=== PATIENT | male | born 1965 | race Caucasian/White ===

== ENCOUNTER 2020-07-06 14:16 | Outpatient (REF) | payer OTHER, MEDICAID, SELFPAY ==
[2020-07-06 16:45] LABS: Hematocrit 36.6 % (42-52); Hemoglobin 12.4 g/dl (14.0-18.0); Mean Corpuscular HGB Conc 33.9 g/dl (31.0-36.0); Mean Corpuscular Hemoglobin 30.5 pg (27.0-33.0); Mean Corpuscular Volume 89.9 fL (80-98); Mean Platelet Volume 9.2 fL (9.4-12.4); Platelet Count 251 X10*3/uL (160-400); Red Blood Count 4.07 X10*6/uL (4.60-5.80); Red Cell Distribution Width 11.9 % (11.0-16.0); White Blood Count 7.6 X10*3/uL (4.8-10.8)
[2020-07-06 17:00] LABS: Estimated Average Glucose 154 mg/dL
[2020-07-06 17:08] LABS: Creatinine Urine 98.86 mg/dL; Microalbum/Creatinine Ratio Ur 142.6 ug/mg cr
[2020-07-06 17:11] LABS: Alanine Aminotransferase 22 U/L (0-40); Albumin Level 4.3 g/dL (3.5-5.0); Alkaline Phosphatase 35 U/L (39-117); Anion Gap 16 (12-20); Aspartate Amino Transferase 16 U/L (5-37); Bilirubin Total 0.9 mg/dL (0.0-1.0); Blood Urea Nitrogen 18 mg/dL (9-16); Calcium 8.6 mg/dL (8.4-10.2); Carbon Dioxide 24 mmol/L (22-29); Chloride 101 mmol/L (96-108); Cholesterol 164 mg/dL; Estimated Glomerular Filt Rate > 60; Glucose Fasting 105 mg/dL (60-99); HDL Cholesterol 39 mg/dL; LDL Cholesterol Calculated 58 mg/dl; Potassium 3.9 mmol/l (3.3-5.1); Sodium 137 mmol/L (135-145); Total Protein 7.4 g/dL (6.5-8.0); Triglycerides 337 mg/dL
== END 2020-07-06 14:17 | disposition home or self-care (01) ==
LOC: HO.HMGCLDS 14:16
PROVIDERS: PCP Internal Medicine; Visit Provider Internal Medicine
DX: E11.9 Type 2 diabetes mellitus without complications (principal); E78.2 Mixed hyperlipidemia; I10 Essential (primary) hypertension
CPT/HCPCS: 36415; 80053; 80061; 82043; 83036; 85027

== ENCOUNTER 2020-10-14 08:10 | Outpatient (REF) | payer OTHER, MEDICAID, SELFPAY ==
[2020-10-14 09:17] LABS: MANUAL DIFF FLAG NO
[2020-10-14 09:22] LABS: Basophils Percent Auto 0.7 % (0-2); Eosinophils Absolute Auto 0.2 X10*3/uL (0.0-0.4); Eosinophils Percent Auto 3.9 % (0-4); Hematocrit 38.8 % (42-52); Hemoglobin 13.1 g/dl (14.0-18.0); Imm Gran Abs Auto 0.03 X10*3/uL (0.00-0.03); Imm Gran Pct Auto 0.5 % (0.0-0.4); Lymphocytes Absolute Auto 1.8 X10*3/uL (1.2-4.9); Lymphocytes Percent Auto 30.5 % (20-40); Mean Corpuscular HGB Conc 33.8 g/dl (31.0-36.0); Mean Corpuscular Hemoglobin 30.3 pg (27.0-33.0); Mean Corpuscular Volume 89.8 fL (80-98); Mean Platelet Volume 9.6 fL (9.4-12.4); Monocytes Absolute Auto 0.4 X10*3/uL (0.1-1.2); Monocytes Percent Auto 7.2 % (2-11); Neutrophils Absolute Auto 3.4 X10*3/uL (2.0-8.3); Neutrophils Percent Auto 57.2 % (45-73); Platelet Count 236 X10*3/uL (160-400); Red Blood Count 4.32 X10*6/uL (4.60-5.80); White Blood Count 5.9 X10*3/uL (4.8-10.8)
[2020-10-14 09:41] LABS: Cholesterol 152 mg/dL; HDL Cholesterol 34 mg/dL; Iron 92 mcg/dL (45-160); LDL Cholesterol Calculated 78 mg/dl; Percent Iron Saturation 24 % (15-50); Total Iron Binding Capacity 380 mcg/dL (228-428); Triglycerides 204 mg/dL; Unsaturated Iron Binding 288 ug/dL
[2020-10-14 09:53] LABS: Estimated Average Glucose 163 mg/dL; Hemoglobin A1c % 7.3 %
[2020-10-14 10:00] LABS: Creatinine Urine 78.38 mg/dL; Microalbum/Creatinine Ratio Ur 113.5 ug/mg cr
== END 2020-10-14 08:11 | disposition home or self-care (01) ==
LOC: HO.LAB 08:10
PROVIDERS: PCP Internal Medicine; Visit Provider Internal Medicine
DX: E11.9 Type 2 diabetes mellitus without complications (principal); E78.5 Hyperlipidemia, unspecified; I10 Essential (primary) hypertension; D64.9 Anemia, unspecified; N20.0 Calculus of kidney
CPT/HCPCS: 36415; 80061; 82043; 83036; 83540; 85025

== ENCOUNTER 2020-10-16 11:31 | Outpatient (REF) | payer OTHER, MEDICAID, SELFPAY | END 2020-10-16 11:32 | disposition home or self-care (01) | LOC: HO.HMGCLDS 11:31 | PROVIDERS: PCP Internal Medicine; Visit Provider Internal Medicine | DX: Z20.822 Contact with and (suspected) exposure to COVID-19 (principal) | CPT/HCPCS: 36415; U0003; U0005 ==

== ENCOUNTER 2021-01-11 14:08 | Outpatient (REF) | payer OTHER, MEDICAID, SELFPAY ==
[2021-01-11 16:41] LABS: Hemoglobin 12.9 g/dl (14.0-18.0); Mean Corpuscular HGB Conc 33.9 g/dl (31.0-36.0); Mean Corpuscular Hemoglobin 30.2 pg (27.0-33.0); Mean Platelet Volume 9.6 fL (9.4-12.4); Platelet Count 255 X10*3/uL (160-400); Red Blood Count 4.27 X10*6/uL (4.60-5.80); Red Cell Distribution Width 11.9 % (11.0-16.0); White Blood Count 6.2 X10*3/uL (4.8-10.8)
[2021-01-11 16:49] LABS: Estimated Average Glucose 169 mg/dL; Hemoglobin A1c % 7.5 %
[2021-01-11 16:59] LABS: Alanine Aminotransferase 25 U/L (0-40); Albumin Level 4.5 g/dL (3.5-5.0); Alkaline Phosphatase 42 U/L (39-117); Anion Gap 13 (12-20); Aspartate Amino Transferase 20 U/L (5-37); Bilirubin Total 0.7 mg/dL (0.0-1.0); Blood Urea Nitrogen 17 mg/dL (9-16); Calcium 9.6 mg/dL (8.4-10.2); Carbon Dioxide 28 mmol/L (22-29); Chloride 100 mmol/L (96-108); Cholesterol 166 mg/dL; Estimated Glomerular Filt Rate > 60; Glucose Fasting 92 mg/dL (60-99); HDL Cholesterol 37 mg/dL; LDL Cholesterol Calculated 62 mg/dl; Potassium 3.9 mmol/L (3.3-5.1); Sodium 137 mmol/L (135-145); Total Protein 7.8 g/dL (6.5-8.0); Triglycerides 335 mg/dL
[2021-01-11 17:09] LABS: Creatinine Urine 110.41 mg/dL; Microalbum/Creatinine Ratio Ur 99.6 ug/mg cr
== END 2021-01-11 14:09 | disposition home or self-care (01) ==
LOC: HO.HMGCLDS 14:08
PROVIDERS: PCP Internal Medicine; Visit Provider Internal Medicine
DX: E78.5 Hyperlipidemia, unspecified (principal); E11.9 Type 2 diabetes mellitus without complications; I10 Essential (primary) hypertension
CPT/HCPCS: 36415; 80053; 80061; 82043; 83036; 85027

== ENCOUNTER 2021-05-12 07:55 | Outpatient (REF) | payer OTHER, MEDICAID, SELFPAY ==
[2021-05-12 12:14] LABS: Creatinine Urine 88.31 mg/dL; Microalbum/Creatinine Ratio Ur 95.1 ug/mg cr
[2021-05-12 12:17] LABS: Alanine Aminotransferase 25 U/L (0-40); Albumin Level 4.3 g/dL (3.5-5.0); Alkaline Phosphatase 42 U/L (39-117); Anion Gap 13 (12-20); Aspartate Amino Transferase 20 U/L (5-37); Bilirubin Total 0.5 mg/dL (0.0-1.0); Blood Urea Nitrogen 18 mg/dL (9-16); Calcium 9.3 mg/dL (8.4-10.2); Carbon Dioxide 23 mmol/L (22-29); Chloride 105 mmol/L (96-108); Cholesterol 139 mg/dL; Estimated Glomerular Filt Rate > 60; Glucose Fasting 110 mg/dL (60-99); HDL Cholesterol 34 mg/dL; LDL Cholesterol Calculated 73 mg/dl; Sodium 137 mmol/L (135-145); Total Protein 7.2 g/dL (6.5-8.0); Triglycerides 164 mg/dL
[2021-05-15 13:23] LABS: Estimated Average Glucose 140 mg/dL; Hemoglobin A1c % 6.5 %
== END 2021-05-12 07:56 | disposition home or self-care (01) ==
LOC: HO.HMGCLDS 07:55
PROVIDERS: PCP Internal Medicine; Visit Provider Internal Medicine
DX: E11.9 Type 2 diabetes mellitus without complications (principal); E78.5 Hyperlipidemia, unspecified; I10 Essential (primary) hypertension
CPT/HCPCS: 36415; 80053; 80061; 82043; 83036

== ENCOUNTER 2021-09-18 14:53 | Outpatient (REF) | payer OTHER, MEDICAID, SELFPAY ==
[2021-09-18 16:19] LABS: Estimated Average Glucose 160 mg/dL; Hemoglobin A1c % 7.2 %
[2021-09-18 16:34] LABS: Microalbum/Creatinine Ratio Ur 101.2 ug/mg cr
[2021-09-18 16:36] LABS: Alanine Aminotransferase 28 U/L (0-40); Albumin Level 4.2 g/dL (3.5-5.0); Alkaline Phosphatase 40 U/L (39-117); Anion Gap 11 (12-20); Aspartate Amino Transferase 25 U/L (5-37); Bilirubin Total 0.6 mg/dL (0.0-1.0); Blood Urea Nitrogen 16 mg/dL (9-16); Calcium 9.4 mg/dL (8.4-10.2); Carbon Dioxide 27 mmol/L (22-29); Chloride 102 mmol/L (96-108); Cholesterol 167 mg/dL; Estimated Glomerular Filt Rate > 60; Glucose Fasting 94 mg/dL (60-99); HDL Cholesterol 35 mg/dL; LDL Cholesterol Calculated 64 mg/dl; Potassium 3.7 mmol/L (3.3-5.1); Sodium 136 mmol/L (135-145); Total Protein 7.6 g/dL (6.5-8.0); Triglycerides 340 mg/dL
== END 2021-09-18 14:54 | disposition home or self-care (01) ==
LOC: HO.HMGCLDS 14:53
PROVIDERS: PCP Internal Medicine; Visit Provider Internal Medicine
DX: Z00.00 Encounter for general adult medical examination without abnormal findings (principal); E11.9 Type 2 diabetes mellitus without complications; E78.5 Hyperlipidemia, unspecified; I10 Essential (primary) hypertension; R80.9 Proteinuria, unspecified
CPT/HCPCS: 36415; 80053; 80061; 82043; 83036

== ENCOUNTER 2022-02-25 14:54 | Outpatient (REF) | payer OTHER, MEDICAID, SELFPAY ==
[2022-02-25 16:41] LABS: Hematocrit 37.2 % (42.0-52.0); Hemoglobin 12.6 g/dl (14.0-18.0); Mean Corpuscular HGB Conc 33.9 g/dl (31.0-36.0); Mean Corpuscular Volume 88.6 fL (80.0-98.0); Mean Platelet Volume 9.2 fL (9.4-12.4); Platelet Count 263 X10*3/uL (160-400); Red Cell Distribution Width 12.3 % (11.0-16.0); White Blood Count 6.7 X10*3/uL (4.8-10.8)
[2022-02-25 16:52] LABS: Estimated Average Glucose 134 mg/dL; Hemoglobin A1c % 6.3 %
[2022-02-25 16:53] LABS: Alanine Aminotransferase 30 U/L (0-40); Albumin Level 4.3 g/dL (3.5-5.0); Alkaline Phosphatase 36 U/L (39-117); Anion Gap 12 (12-20); Aspartate Amino Transferase 22 U/L (5-37); Bilirubin Total 0.6 mg/dL (0.0-1.0); Blood Urea Nitrogen 16 mg/dL (9-16); Calcium 8.7 mg/dL (8.4-10.2); Carbon Dioxide 27 mmol/L (22-29); Chloride 103 mmol/L (96-108); Cholesterol 134 mg/dL; Estimated Glomerular Filt Rate > 60; Glucose Fasting 79 mg/dL (60-99); HDL Cholesterol 36 mg/dL; LDL Cholesterol Calculated 57 mg/dl; Potassium 3.6 mmol/L (3.3-5.1); Sodium 138 mmol/L (135-145); Total Protein 7.4 g/dL (6.5-8.0); Triglycerides 206 mg/dL
[2022-02-25 18:23] LABS: Creatinine Urine 134.54 mg/dL; Microalbum/Creatinine Ratio Ur 187.3 ug/mg cr
== END 2022-02-25 14:55 | disposition home or self-care (01) ==
LOC: HO.HMGCLDS 14:54
PROVIDERS: PCP Internal Medicine; Visit Provider Internal Medicine
DX: E78.5 Hyperlipidemia, unspecified (principal); I10 Essential (primary) hypertension; E11.9 Type 2 diabetes mellitus without complications
CPT/HCPCS: 36415; 80053; 80061; 82043; 83036; 85027

== ENCOUNTER 2022-06-22 07:45 | Outpatient (REF) | payer OTHER, MEDICAID, SELFPAY ==
[2022-06-22 11:33] LABS: MANUAL DIFF FLAG NO
[2022-06-22 11:39] LABS: Basophils Absolute Auto 0.1 X10*3/uL (0.0-0.2); Basophils Percent Auto 1.1 % (0-2); Eosinophils Absolute Auto 0.4 X10*3/uL (0.0-0.4); Hematocrit 37.3 % (42.0-52.0); Hemoglobin 12.8 g/dl (14.0-18.0); Imm Gran Abs Auto 0.03 X10*3/uL (0.00-0.03); Imm Gran Pct Auto 0.6 % (0.0-0.4); Lymphocytes Absolute Auto 1.6 X10*3/uL (1.2-4.9); Lymphocytes Percent Auto 29.4 % (20-40); Mean Corpuscular HGB Conc 34.3 g/dl (31.0-36.0); Mean Corpuscular Hemoglobin 30.7 pg (27.0-33.0); Mean Corpuscular Volume 89.4 fL (80.0-98.0); Mean Platelet Volume 9.9 fL (9.4-12.4); Monocytes Absolute Auto 0.4 X10*3/uL (0.1-1.2); Neutrophils Absolute Auto 2.9 x10*3/uL (2.0-8.3); Neutrophils Percent Auto 53.9 % (45-73); Platelet Count 238 X10*3/uL (160-400); Red Blood Count 4.17 X10*6/uL (4.60-5.80); Red Cell Distribution Width 12.3 % (11.0-16.0); White Blood Count 5.4 X10*3/uL (4.8-10.8)
[2022-06-22 12:12] LABS: Estimated Average Glucose 146 mg/dL; Hemoglobin A1c % 6.7 %
[2022-06-22 12:19] LABS: Microalbum/Creatinine Ratio Ur 125.7 ug/mg cr
[2022-06-22 12:35] LABS: Alanine Aminotransferase 27 U/L (0-40); Albumin Level 4.3 g/dL (3.5-5.0); Alkaline Phosphatase 39 U/L (39-117); Anion Gap 18 (12-20); Aspartate Amino Transferase 15 U/L (5-37); Bilirubin Total 0.6 mg/dL (0.0-1.0); Blood Urea Nitrogen 21 mg/dL (9-16); Calcium 9.2 mg/dL (8.4-10.2); Carbon Dioxide 25 mmol/L (22-29); Chloride 99 mmol/L (96-108); Cholesterol 154 mg/dL; Estimated Glomerular Filt Rate > 60; Glucose Fasting 167 mg/dL (60-99); HDL Cholesterol 35 mg/dL; LDL Cholesterol Calculated 65 mg/dl; Potassium 4.1 mmol/L (3.3-5.1); Sodium 138 mmol/L (135-145); Total Protein 7.3 g/dL (6.5-8.0); Triglycerides 271 mg/dL
== END 2022-06-22 07:46 | disposition home or self-care (01) ==
LOC: HO.HMGCLDS 07:45
PROVIDERS: PCP Internal Medicine; Visit Provider Internal Medicine
DX: I10 Essential (primary) hypertension (principal); E78.5 Hyperlipidemia, unspecified; E11.9 Type 2 diabetes mellitus without complications
CPT/HCPCS: 36415; 80053; 80061; 82043; 83036; 85025

== ENCOUNTER 2022-12-31 11:03 | Outpatient (REF) | payer OTHER, MEDICAID, SELFPAY ==
[2022-12-31 14:23] LABS: Alanine Aminotransferase 23 U/L (0-40); Albumin Level 4.1 g/dL (3.5-5.0); Alkaline Phosphatase 40 U/L (39-117); Anion Gap 14 (12-20); Aspartate Amino Transferase 19 U/L (5-37); Bilirubin Total 0.5 mg/dL (0.0-1.0); Blood Urea Nitrogen 21 mg/dL (9-16); Calcium 9.2 mg/dL (8.4-10.2); Carbon Dioxide 27 mmol/L (22-29); Chloride 101 mmol/L (96-108); Cholesterol 156 mg/dL; Estimated Glomerular Filt Rate > 60; Glucose Fasting 75 mg/dL (60-99); HDL Cholesterol 37 mg/dL; LDL Cholesterol Calculated 76 mg/dl; Potassium 4.5 mmol/L (3.3-5.1); Sodium 137 mmol/L (135-145); Total Protein 7.2 g/dL (6.5-8.0); Triglycerides 218 mg/dL
[2022-12-31 14:56] LABS: Estimated Average Glucose 131 mg/dL; Hemoglobin A1c % 6.2 %
[2022-12-31 16:16] LABS: Creatinine Urine 112.39 mg/dL; Microalbum/Creatinine Ratio Ur 119.2 ug/mg cr
== END 2022-12-31 11:04 | disposition home or self-care (01) ==
LOC: HO.HMGCLDS 11:03
PROVIDERS: PCP Internal Medicine; Visit Provider Internal Medicine
DX: E11.9 Type 2 diabetes mellitus without complications (principal); I10 Essential (primary) hypertension; R80.9 Proteinuria, unspecified; E78.5 Hyperlipidemia, unspecified
CPT/HCPCS: 36415; 80053; 80061; 82043; 83036

== ENCOUNTER 2023-06-28 07:37 | Outpatient (REF) | payer OTHER, MEDICAID, SELFPAY ==
[2023-06-28 11:03] LABS: MANUAL DIFF FLAG NO
[2023-06-28 11:12] LABS: Basophils Absolute Auto 0.1 X10*3/uL (0.0-0.2); Basophils Percent Auto 1.1 % (0-2); Eosinophils Absolute Auto 0.3 X10*3/uL (0.0-0.4); Eosinophils Percent Auto 5.4 % (0-4); Hematocrit 40.8 % (42.0-52.0); Hemoglobin 14.3 g/dl (14.0-18.0); Imm Gran Abs Auto 0.03 X10*3/uL (0.00-0.03); Imm Gran Pct Auto 0.6 % (0.0-0.4); Lymphocytes Absolute Auto 1.6 X10*3/uL (1.2-4.9); Lymphocytes Percent Auto 30.4 % (20-40); Mean Corpuscular Volume 88.5 fL (80.0-98.0); Mean Platelet Volume 10.5 fL (9.4-12.4); Monocytes Absolute Auto 0.4 X10*3/uL (0.1-1.2); Monocytes Percent Auto 7.1 % (2-11); Neutrophils Percent Auto 55.4 % (45-73); Platelet Count 247 X10*3/uL (160-400); Red Blood Count 4.61 X10*6/uL (4.60-5.80); Red Cell Distribution Width 12.2 % (11.0-16.0); White Blood Count 5.4 X10*3/uL (4.8-10.8)
[2023-06-28 11:16] LABS: Estimated Average Glucose 214 mg/dL; Hemoglobin A1c % 9.1 % (<6.0)
[2023-06-28 11:28] LABS: Alanine Aminotransferase 30 U/L (0-40); Albumin Level 4.3 g/dL (3.5-5.0); Alkaline Phosphatase 49 U/L (39-117); Anion Gap 17 (12-20); Aspartate Amino Transferase 20 U/L (5-37); Bilirubin Total 0.5 mg/dL (0.0-1.0); Blood Urea Nitrogen 24 mg/dL (9-16); Calcium 9.5 mg/dL (8.4-10.2); Carbon Dioxide 20 mmol/L (22-29); Chloride 101 mmol/L (96-108); Cholesterol 209 mg/dL (<200); Estimated Glomerular Filt Rate > 60; Glucose Fasting 230 mg/dL (60-99); HDL Cholesterol 32 mg/dL (>40); Sodium 134 mmol/L (135-145); Total Protein 7.9 g/dL (6.5-8.0); Triglycerides 1036 mg/dL (<150)
[2023-06-28 12:14] LABS: Creatinine Urine 47.21 mg/dL; Microalbum/Creatinine Ratio Ur 171.5 ug/mg cr (<30)
== END 2023-06-28 07:38 | disposition home or self-care (01) ==
LOC: HO.HMGCLDS 07:37
PROVIDERS: PCP Internal Medicine; Visit Provider Internal Medicine
DX: Z00.00 Encounter for general adult medical examination without abnormal findings (principal); I10 Essential (primary) hypertension; E11.9 Type 2 diabetes mellitus without complications; E78.5 Hyperlipidemia, unspecified
CPT/HCPCS: 36415; 80053; 80061; 82043; 82570; 83036; 85025

== ENCOUNTER 2023-07-01 12:49 | Outpatient (AMB) | payer OTHER, MEDICAID, SELFPAY ==
--- NOTE | 2023-07-01 13:04 | A.OFFPC_ITS ---
Vital Signs 07/01/23 13:05 Height 5 ft 8 in Weight 220 lb BMI 33.4 BP 116/70 Blood Pressure Location Lt brachial Position Sitting Pulse 81 Pulse Source Pulse Oximeter Pulse Oximetry (%) 96 Oxygen Delivery Method Room Air Intake Visit Reasons: Annual PE - due for colonoscopy Intake Note: Pt is here today for PE. Allergies penicillin V Allergy (Unknown, Verified 07/01/23 13:06) Unknown Medication List - Last Reconciled 07/01/23 by Delma Burks MD amlodipine 7.5 mg (1.5 x 5 mg) PO DAILY aspirin 81 mg PO DAILY blood sugar diagnostic (FreeStyle Lite Strips) test once a day blood-glucose meter (FreeStyle Lite Meter kit) As directed dapagliflozin propanediol (Farxiga) 10 mg PO DAILY lisinopril 40 mg PO DAILY metformin ER 1,000 mg (2 x 500 mg) PO BID metoprolol succinate ER 50 mg PO DAILY omeprazole 20 mg PO DAILY paroxetine HCl 20 mg PO DAILY potassium citrate ER 20 mEq (2 x 10 mEq (1,080 mg)) PO BID pravastatin 20 mg PO DAILY vardenafil (Levitra) 20 mg PO DAILY Tobacco use date assessed: 07/01/23 Dental Screening Dental Screen Date: 07/01/23 Did you have a dental visit in the last 12 months?: Yes Did you have a dental problem in the last 6 months where you did not have access to dental care?: No Was dental information given to patient?: Patient has dentist HPI Annual PE - due for colonoscopy HPI Details Pt presents for PE. Pt did not take Trulicity and Farxiga for a month because of insurance not covering prescriptions. He reports high blood glucose readings in 200s in the morning. Patient reports increased thirst and urination. He started taking Farxiga about a week. Patient continues to take metformin 1000 mg twice a day. [facility] Medical History Annual physical exam Anemia Diabetic neuropathy Microalbuminuria Nephrolithiasis Anxiety Diabetes Hyperlipidemia Hypertension Surgical History H/O colonoscopy Family History Father CVD (cardiovascular disease) Mother Stroke Social History Housing: House Alcohol intake: current Alcohol intake frequency: a few times a month Patient Tobacco Use Status: Never used Tobacco e-Cigarette/Vaping Use: Never Used Current occupational status: employed Cognitive needs: No Hearing needs: No Vision needs: No Questionnaire Thrive Questionnaire Date Thrive assessed: 01/02/23 AUDIT C Alcohol Use Questionnaire (AUDIT-C) 1. How often do you have a drink containing alcohol?: Monthly or less 2. How many drinks containing alcohol do you have on a typical day when you are drinking?: 1 or 2 3. How often do you have six or more drinks on one occasion?: Never Total Score: 1 LARISSA-7 AMB Questionnaire LARISSA-7 Date LARISSA - 7 assessed: 01/02/23 Source: Developed by Drs. Kimo Sagastume, Alexandra Garay, Meng Ventura and colleagues, with an educational samir from [employer]. Review of Systems Const All systems reviewed & are unremarkable except as noted in HPI and below Reports no additional complaints Eyes Reports no additional complaints ENT Reports no additional complaints Card Reports no additional complaints Resp Reports no additional complaints GI Reports no additional complaints Reports no additional complaints Physical exam (Primary Care) Vital Signs: Last Vital Signs Pulse 81 07/01/23 13:05 BP 116/70 07/01/23 13:05 Pulse Ox 96 07/01/23 13:05 Oxygen Delivery Method Room Air 07/01/23 13:05 BMI result Body Mass Index 33.4 Tobacco/Smoking Status: Tobacco use Status Tobacco use date assessed 07/01/23 07/01/23 13:09 Patient Tobacco Use Status Never used Tobacco 07/01/23 13:09 e-Cigarette/Vaping Use Never Used 07/01/23 13:09 Thrive Assessment: Date of Thrive Assessment Date Thrive assessed 01/02/23 07/01/23 13:09 Const General: no acute distress HENMT Face and sinus: Yes normal facial exam Eyes General: appearance normal, both eyes and all related structures Neck Neck: Yes no lymphadenopathy and Yes supple Resp Effort & Inspection: normal respiratory effort Auscultation: clear to auscultation bilaterally Cardio Rhythm: regular rhythm Heart sounds: S1 normal heart sound present and S2 normal heart sound present GI Inspection: Yes normal to inspection Palpation (GI): Soft to palpation Percussion: Yes normal to percussion Auscultation: normal bowel sounds Assessment and Plan Assessment & Plan (1) Hypertension: Code(s): I10 - Essential (primary) hypertension Plan: Continue medications (2) Hyperlipidemia: Code(s): E78.5 - Hyperlipidemia, unspecified Plan: Continue statin and follow low-cholesterol diet (3) Diabetes: Code(s): E11.9 - Type 2 diabetes mellitus without complications Plan: A1c is 9.1 from 6.2, ADA diet regular physical activity discussed with the patient. He will continue metformin Farxiga and will restart Trulicity at 3mg weekly. Glipizide 5 mg sent to the pharmacy. Patient was advised to record fasting blood glucose for the next month and follow-up in 1 month to review. Patient will have a fasting blood work 1 week prior to next visit for lipid profile and comprehensive panel Orders: Orders Lipid Panel 3 Weeks E11.9 - Type 2 diabetes mellitus without complications, E78.5 - Hyperlipidemia, unspecified, I10 - Essential (primary) hypertension Basic Metabolic Panel Fasting 3 Weeks E11.9 - Type 2 diabetes mellitus without complications, E78.5 - Hyperlipidemia, unspecified, I10 - Essential (primary) hypertension Referrals Cologuard Test Z12.11 - Encounter for screening for malignant neoplasm of colon, Z12.12 - Encounter for screening for malignant neoplasm of rectum Medications: New glipizide 5 mg PO DAILY 90 tabs 0RF Coding Level of Care Code Est Pt Prev Care 40-64y(44803) Diagnoses Hypertension I10 Hyperlipidemia E78.5 Diabetes E11.9
[2023-07-01 13:05] VITALS: BP 116/70; PULSE 81; O2SAT 96; BMI 33.4
== END 2023-07-01 14:15 | disposition home or self-care (01) ==
PROVIDERS: Visit Provider Internal Medicine
DX: Z00.00 Encounter for general adult medical examination without abnormal findings (principal); E11.9 Type 2 diabetes mellitus without complications; I10 Essential (primary) hypertension; E78.5 Hyperlipidemia, unspecified
CPT/HCPCS: 99396

== ENCOUNTER 2023-08-06 06:01 | Outpatient (REF) | payer OTHER, MEDICAID, SELFPAY ==
[2023-08-06 11:58] LABS: Anion Gap 12 (12-20); Blood Urea Nitrogen 18 mg/dL (9-16); Calcium 9.4 mg/dL (8.4-10.2); Carbon Dioxide 27 mmol/L (22-29); Chloride 103 mmol/L (96-108); Cholesterol 151 mg/dL (<200); Estimated Glomerular Filt Rate > 60; Glucose Fasting 105 mg/dL (60-99); HDL Cholesterol 39 mg/dL (>40); LDL Cholesterol Calculated 78 mg/dL (<100); Potassium 3.8 mmol/L (3.3-5.1); Sodium 138 mmol/L (135-145); Triglycerides 173 mg/dL (<150)
== END 2023-08-06 06:02 | disposition home or self-care (01) ==
LOC: HO.HMGCLDS 06:01
PROVIDERS: PCP Internal Medicine; Visit Provider Internal Medicine
DX: I10 Essential (primary) hypertension (principal); E78.5 Hyperlipidemia, unspecified; E11.9 Type 2 diabetes mellitus without complications
CPT/HCPCS: 36415; 80048; 80061

== ENCOUNTER 2023-08-07 13:03 | Outpatient (AMB) | payer OTHER, MEDICAID, SELFPAY ==
--- NOTE | 2023-08-07 13:17 | MHC.PC.OV ---
Vital Signs 08/07/23 13:18 Height 5 ft 8 in Weight 220 lb BMI 33.4 BP 108/66 Blood Pressure Location Rt brachial Position Sitting Pulse 74 Pulse Source Pulse Oximeter Pulse Oximetry (%) 97 Oxygen Delivery Method Room Air Intake Visit Reasons: 1 Month follow up Intake Note: Pt is here today for 1 month follow up visit on DM. Allergies penicillin V Allergy (Unknown, Verified 08/07/23 13:18) Unknown Medication List - Last Reconciled 08/07/23 by Delma Burks MD amlodipine 7.5 mg (1.5 x 5 mg) PO DAILY aspirin 81 mg PO DAILY blood sugar diagnostic (FreeStyle Lite Strips) test once a day blood-glucose meter (FreeStyle Lite Meter kit) As directed dapagliflozin propanediol (Farxiga) 10 mg PO DAILY dulaglutide (Trulicity) 3 mg (0.5 mL) subcut QWEEK glipizide 5 mg PO DAILY lisinopril 40 mg PO DAILY metformin ER 1,000 mg (2 x 500 mg) PO BID metoprolol succinate ER 50 mg PO DAILY omeprazole 20 mg PO DAILY paroxetine HCl 20 mg PO DAILY potassium citrate ER 20 mEq (2 x 10 mEq (1,080 mg)) PO BID pravastatin 20 mg PO DAILY vardenafil (Levitra) 20 mg PO DAILY Tobacco use date assessed: 07/01/23 HPI 1 Month follow up HPI Details Patient presents for the follow-up of type 2 diabetes. He reports improved fasting glucose since restarting Trulicity and Farxiga. Pt has been taking Glipizide as well. HTN is stable. [facility] Medical History Annual physical exam Anemia Diabetic neuropathy Microalbuminuria Nephrolithiasis Anxiety Diabetes Hyperlipidemia Hypertension Surgical History H/O colonoscopy Family History Father CVD (cardiovascular disease) Mother Stroke Social History Housing: House Alcohol intake: current Alcohol intake frequency: a few times a month Patient Tobacco Use Status: Never used Tobacco e-Cigarette/Vaping Use: Never Used Current occupational status: employed Cognitive needs: No Hearing needs: No Vision needs: No Questionnaire Thrive Questionnaire Date Thrive assessed: 01/02/23 LARISSA-7 AMB Questionnaire LARISSA-7 Date LARISSA - 7 assessed: 01/02/23 Source: Developed by Drs. Kimo Sagastume, Alexandra Garay, Meng Ventura and colleagues, with an educational samir from [employer]. Review of Systems Const All systems reviewed & are unremarkable except as noted in HPI and below Reports no additional complaints Eyes Reports no additional complaints ENT Reports no additional complaints Card Reports no additional complaints Resp Reports no additional complaints GI Reports no additional complaints Reports no additional complaints Physical exam (Primary Care) Vital Signs: Last Vital Signs Pulse 74 08/07/23 13:18 BP 108/66 08/07/23 13:18 Pulse Ox 97 08/07/23 13:18 Oxygen Delivery Method Room Air 08/07/23 13:18 BMI result Body Mass Index 33.4 Tobacco/Smoking Status: Tobacco use Status Tobacco use date assessed 07/01/23 08/07/23 13:18 Patient Tobacco Use Status Never used Tobacco 08/07/23 13:18 e-Cigarette/Vaping Use Never Used 08/07/23 13:18 Thrive Assessment: Date of Thrive Assessment Date Thrive assessed 01/02/23 08/07/23 13:18 Const General: no acute distress HENMT Mouth: Normal oral and palatal mucosa present Resp Effort & Inspection: normal respiratory effort Auscultation: clear to auscultation bilaterally Cardio Rhythm: regular rhythm Heart sounds: S1 normal heart sound present and S2 normal heart sound present GI Inspection: Yes normal to inspection Palpation (GI): Soft to palpation Assessment and Plan Assessment & Plan (1) Diabetes: Code(s): E11.9 - Type 2 diabetes mellitus without complications Plan: cont current meds, ADA diet, exercise. Pt will stop Glipizide if glucose <70, f/u 3 months with fasting labs (2) Hyperlipidemia: Code(s): E78.5 - Hyperlipidemia, unspecified Plan: cont statin (3) Hypertension: Code(s): I10 - Essential (primary) hypertension Plan: cont meds Orders: Orders Complete Blood Count Auto Diff 3 Months E11.9 - Type 2 diabetes mellitus without complications, E78.5 - Hyperlipidemia, unspecified, I10 - Essential (primary) hypertension Comprehensive [place]. Panel Fast 3 Months E11.9 - Type 2 diabetes mellitus without complications, E78.5 - Hyperlipidemia, unspecified, I10 - Essential (primary) hypertension Lipid Panel 3 Months E11.9 - Type 2 diabetes mellitus without complications, E78.5 - Hyperlipidemia, unspecified, I10 - Essential (primary) hypertension Hemoglobin A1c 3 Months E11.9 - Type 2 diabetes mellitus without complications, E78.5 - Hyperlipidemia, unspecified, I10 - Essential (primary) hypertension Microalbumin, Random (w Creat) 3 Months E11.9 - Type 2 diabetes mellitus without complications, E78.5 - Hyperlipidemia, unspecified, I10 - Essential (primary) hypertension Medications: New dulaglutide (Trulicity) 3 mg (0.5 mL) subcut QWEEK 6 mL 4RF Coding Level of Care Code Est Pt Level 4 (00970) Diagnoses Diabetes E11.9 Hyperlipidemia E78.5 Hypertension I10
[2023-08-07 13:18] VITALS: BP 108/66; PULSE 74; O2SAT 97; BMI 33.4
== END 2023-08-07 15:07 | disposition home or self-care (01) ==
PROVIDERS: PCP Internal Medicine; Visit Provider Internal Medicine
DX: E11.9 Type 2 diabetes mellitus without complications (principal); E78.5 Hyperlipidemia, unspecified; I10 Essential (primary) hypertension
CPT/HCPCS: 99214

== ENCOUNTER 2023-10-25 08:22 | Outpatient (REF) | payer OTHER, MEDICAID, SELFPAY ==
[2023-10-25 11:24] LABS: MANUAL DIFF FLAG NO
[2023-10-25 11:32] LABS: Basophils Absolute Auto 0.1 X10*3/uL (0.0-0.2); Basophils Percent Auto 1.1 % (0-2); Eosinophils Absolute Auto 0.4 X10*3/uL (0.0-0.4); Eosinophils Percent Auto 5.5 % (0-4); Hematocrit 44.2 % (42.0-52.0); Hemoglobin 15.1 g/dl (14.0-18.0); Imm Gran Abs Auto 0.03 X10*3/uL (0.00-0.03); Imm Gran Pct Auto 0.4 % (0.0-0.4); Lymphocytes Absolute Auto 1.9 X10*3/uL (1.2-4.9); Lymphocytes Percent Auto 26.7 % (20-40); Mean Corpuscular HGB Conc 34.2 g/dl (31.0-36.0); Mean Corpuscular Hemoglobin 30.6 pg (27.0-33.0); Mean Corpuscular Volume 89.5 fL (80.0-98.0); Mean Platelet Volume 9.9 fL (9.4-12.4); Monocytes Absolute Auto 0.5 X10*3/uL (0.1-1.2); Monocytes Percent Auto 6.8 % (2-11); Neutrophils Absolute Auto 4.2 x10*3/uL (2.0-8.3); Neutrophils Percent Auto 59.5 % (45-73); Platelet Count 232 X10*3/uL (160-400); Red Blood Count 4.94 X10*6/uL (4.60-5.80); Red Cell Distribution Width 12.3 % (11.0-16.0); White Blood Count 7.1 X10*3/uL (4.8-10.8)
[2023-10-25 11:50] LABS: Estimated Average Glucose 114 mg/dL; Hemoglobin A1c % 5.6 % (<6.0)
[2023-10-25 11:57] LABS: Alanine Aminotransferase 35 U/L (0-40); Albumin Level 4.3 g/dL (3.5-5.0); Alkaline Phosphatase 40 U/L (39-117); Anion Gap 10 (12-20); Aspartate Amino Transferase 26 U/L (5-37); Bilirubin Total 0.8 mg/dL (0.0-1.0); Blood Urea Nitrogen 17 mg/dL (9-16); Calcium 9.1 mg/dL (8.4-10.2); Carbon Dioxide 27 mmol/L (22-29); Chloride 104 mmol/L (96-108); Cholesterol 156 mg/dL (<200); Estimated Glomerular Filt Rate > 60; Glucose Fasting 111 mg/dL (60-99); HDL Cholesterol 31 mg/dL (>40); LDL Cholesterol Calculated 92 mg/dL (<100); Potassium 3.9 mmol/L (3.3-5.1); Sodium 137 mmol/L (135-145); Total Protein 7.8 g/dL (6.5-8.0); Triglycerides 165 mg/dL (<150)
[2023-10-25 12:11] LABS: Creatinine Urine 89.46 mg/dL; Microalbum/Creatinine Ratio Ur 116.2 ug/mg cr (<30)
== END 2023-10-25 08:23 | disposition home or self-care (01) ==
LOC: HO.HMGCLDS 08:22
PROVIDERS: PCP Internal Medicine; Visit Provider Internal Medicine
DX: E11.9 Type 2 diabetes mellitus without complications (principal); E78.5 Hyperlipidemia, unspecified; I10 Essential (primary) hypertension
CPT/HCPCS: 36415; 80053; 80061; 82043; 82570; 83036; 85025

== ENCOUNTER 2024-01-21 06:01 | Outpatient (REF) | payer OTHER, MEDICAID, SELFPAY ==
[2024-01-21 10:36] LABS: Estimated Average Glucose 134 mg/dL; Hemoglobin A1c % 6.3 % (<6.0)
[2024-01-21 10:46] LABS: Alanine Aminotransferase 23 U/L (0-40); Albumin Level 4.1 g/dL (3.5-5.0); Alkaline Phosphatase 40 U/L (39-117); Anion Gap 14 (12-20); Aspartate Amino Transferase 15 U/L (5-37); Bilirubin Total 0.6 mg/dL (0.0-1.0); Blood Urea Nitrogen 18 mg/dL (9-16); Calcium 9.2 mg/dL (8.4-10.2); Carbon Dioxide 24 mmol/L (22-29); Chloride 104 mmol/L (96-108); Cholesterol 139 mg/dL (<200); Estimated Glomerular Filt Rate > 60; Glucose Fasting 125 mg/dL (60-99); HDL Cholesterol 36 mg/dL (>40); LDL Cholesterol Calculated 68 mg/dL (<100); Potassium 3.8 mmol/L (3.3-5.1); Sodium 138 mmol/L (135-145); Total Protein 7.4 g/dL (6.5-8.0); Triglycerides 177 mg/dL (<150)
[2024-01-21 11:29] LABS: Creatinine Urine 118.43 mg/dL; Microalbum/Creatinine Ratio Ur 132.5 ug/mg cr (<30)
== END 2024-01-21 06:02 | disposition home or self-care (01) ==
LOC: HO.HMGCLDS 06:01
PROVIDERS: PCP Internal Medicine; Visit Provider Internal Medicine
DX: R80.9 Proteinuria, unspecified (principal); E78.5 Hyperlipidemia, unspecified; E11.9 Type 2 diabetes mellitus without complications
CPT/HCPCS: 36415; 80053; 80061; 82043; 82570; 83036

== ENCOUNTER 2024-01-23 13:58 | Outpatient (AMB) | payer OTHER, MEDICAID, SELFPAY ==
[2024-01-23 14:08] VITALS: BP 114/84; PULSE 82; O2SAT 97; BMI 35.3
--- NOTE | 2024-01-23 14:08 | MHC.PC.OV ---
Vital Signs 01/23/24 14:08 Height 5 ft 8 in Weight 232 lb BMI 35.3 BP 114/84 Blood Pressure Location Lt brachial Position Sitting Pulse 82 Pulse Source Pulse Oximeter Pulse Oximetry (%) 97 Oxygen Delivery Method Room Air Intake Visit Reasons: Follow up on DM Allergies penicillin V Allergy (Unknown, Verified 01/23/24 14:11) Unknown Medication List - Last Reconciled 01/23/24 by Delma Burks MD amlodipine 7.5 mg (1.5 x 5 mg) PO DAILY aspirin 81 mg PO DAILY blood sugar diagnostic (FreeStyle Lite Strips) test once a day blood-glucose meter (FreeStyle Lite Meter kit) As directed dapagliflozin propanediol (Farxiga) 10 mg PO DAILY dulaglutide (Trulicity) 3 mg (0.5 mL) subcut QWEEK glipizide 5 mg PO DAILY lisinopril 40 mg PO DAILY metformin ER 1,000 mg (2 x 500 mg) PO BID metoprolol succinate ER 50 mg PO DAILY omeprazole 20 mg PO DAILY paroxetine HCl 20 mg PO DAILY potassium citrate ER 20 mEq (2 x 10 mEq (1,080 mg)) PO BID pravastatin 20 mg PO DAILY semaglutide (Ozempic) 2 mg (0.75 mL) subcut QWEEK vardenafil (Levitra) 20 mg PO DAILY Tobacco use date assessed: 01/23/24 Dental Screening Dental Screen Date: 01/23/24 Did you have a dental visit in the last 12 months?: Yes Did you have a dental problem in the last 6 months where you did not have access to dental care?: No Was dental information given to patient?: Patient has dentist HPI Follow up on DM HPI Details Patient presents for the follow-up on hypertension hyperlipidemia type 2 diabetes chronic GERD stable on current medications PFSH Medical History Annual physical exam Anemia Diabetic neuropathy Microalbuminuria Nephrolithiasis Anxiety Diabetes Hyperlipidemia Hypertension Surgical History (Updated 01/23/24 @ 14:43 by Delma Burks MD) H/O colonoscopy Family History Father CVD (cardiovascular disease) Mother Stroke Social History Housing: House Alcohol intake: current Alcohol intake frequency: a few times a month Patient Tobacco Use Status: Never used Tobacco e-Cigarette/Vaping Use: Never Used service: No Current occupational status: employed Cognitive needs: No Hearing needs: No Vision needs: No Questionnaire PHQ-9 Over the last 2 weeks, how often have you been bothered by any of the following problems? 1. Little interest or pleasure in doing things: not at all 2. Feeling down, depressed, or hopeless: not at all 3. Trouble falling or staying asleep, or sleeping too much: not at all 4. Feeling tired or having little energy: not at all 5. Poor appetite or overeating: not at all 6. Feeling bad about yourself - or that you are a failure or have let yourself or your family down: not at all 7. Trouble concentrating on things, such as reading the newspaper or watching television: not at all 8. Moving or speaking so slowly that other people could have noticed. Or the opposite - being so fidgety or restless that you have been moving around a lot more than usual: not at all 9. Thoughts that you would be better off or of hurting yourself in some way: not at all Total score: 0 Depression Screening Interpretation: Negative Depression Screening Done: Yes Source: Developed by Drs. Kimo Sagastume, Alexandra Garay, Meng Ventura and colleagues, with an educational samir from [employer]. Thrive Questionnaire Date Thrive assessed: 01/23/24 I am a: Patient What is your living situation today?: I have a steady place to live Within the past 12 months, did the food you bought not last and you didn't have the money to get more?: Never true Within the past 12 months, did you worry whether your food would run out before you got money to buy more?: Never true Do you have trouble paying for medicines?: No Do you have trouble getting transportation to medical appointments?: No Do you have trouble paying your heating and electricity bill?: No Do you have trouble taking care of your child, family member or friend?: No Do you have trouble with day-to-day activities such as bathing, preparing meals, shopping, managing finances, etc.?: No Are you currently unemployed and looking for a job?: No Are you interested in more education?: No Please select the resources that you would like help with: None THRIVE Score: 0 AUDIT C Alcohol Use Questionnaire (AUDIT-C) 1. How often do you have a drink containing alcohol?: Monthly or less 2. How many drinks containing alcohol do you have on a typical day when you are drinking?: 1 or 2 3. How often do you have six or more drinks on one occasion?: Never Total Score: 1 LARISSA-7 AMB Questionnaire LARISSA-7 Date LARISSA - 7 assessed: 01/23/24 Feeling nervous, anxious, or on edge: 0 = Not at all Not being able to stop or control worryin = Not at all Worrying too much about different things: 0 = Not at all Trouble relaxin = Not at all Being so restless that it is hard to sit still: 0 = Not at all Becoming easily annoyed or irritable: 0 = Not at all Feeling afraid as if something awful might happen: 0 = Not at all Total LARISSA-7 score (0-4 normal; 5-9 mild; 10-14 moderate; 15-21 severe): 0 Source: Developed by Drs. Kimo Sagastume, Alexandra Garay, Meng Ventura and colleagues, with an educational samir from [employer]. Review of Systems Const All systems reviewed & are unremarkable except as noted in HPI and below Eyes Reports no additional complaints Card Reports no additional complaints Resp Reports no additional complaints GI Reports no additional complaints Reports no additional complaints Physical exam (Primary Care) Vital Signs: Last Vital Signs Pulse 82 01/23/24 14:08 BP 114/84 01/23/24 14:08 Pulse Ox 97 01/23/24 14:08 Oxygen Delivery Method Room Air 01/23/24 14:08 BMI result Body Mass Index 35.3 Tobacco/Smoking Status: Tobacco use Status Tobacco use date assessed 01/23/24 01/23/24 14:14 Patient Tobacco Use Status Never used Tobacco 01/23/24 14:14 e-Cigarette/Vaping Use Never Used 01/23/24 14:09 PHQ-9: PHQ-9 Score PHQ-9: Total score 0 01/23/24 14:11 Depression Screening Interpretation: Negative Thrive Assessment: Date of Thrive Assessment Date Thrive assessed 01/23/24 01/23/24 14:11 Const General: no acute distress HENMT Head: Yes normal to inspection Face and sinus: Yes normal facial exam Eyes General: appearance normal, both eyes and all related structures Neck Neck: Yes supple Resp Effort & Inspection: normal respiratory effort Auscultation: clear to auscultation bilaterally Cardio Rhythm: regular rhythm Heart sounds: S1 normal heart sound present and S2 normal heart sound present GI Inspection: Yes normal to inspection Palpation (GI): Soft to palpation Percussion: Yes normal to percussion Auscultation: normal bowel sounds Assessment and Plan Assessment & Plan (1) Hypertension: Code(s): I10 - Essential (primary) hypertension Plan: Continue current medications (2) Hyperlipidemia: Code(s): E78.5 - Hyperlipidemia, unspecified Plan: Continue statin (3) Diabetes: Code(s): E11.9 - Type 2 diabetes mellitus without complications Plan: A1c is up to 6.3 and patient gained 12 lb since the last visit. ADA diet, increase exercise weight loss discussed with the patient. Continue current medications follow-up in 5 months with a fasting labs before Orders: Orders Comprehensive [place]. Panel Fast 5 Months E11.9 - Type 2 diabetes mellitus without complications, E78.5 - Hyperlipidemia, unspecified, I10 - Essential (primary) hypertension Hemoglobin A1c 5 Months E11.9 - Type 2 diabetes mellitus without complications, E78.5 - Hyperlipidemia, unspecified, I10 - Essential (primary) hypertension Lipid Panel 5 Months E11.9 - Type 2 diabetes mellitus without complications, E78.5 - Hyperlipidemia, unspecified, I10 - Essential (primary) hypertension Microalbumin, Random (w Creat) 5 Months E11.9 - Type 2 diabetes mellitus without complications, E78.5 - Hyperlipidemia, unspecified, I10 - Essential (primary) hypertension Medications: Discontinued dulaglutide (Trulicity) Discontinued Reason: Doctor's Order 3 mg (0.5 mL) subcut QWEEK 6 mL 4RF glipizide Discontinued Reason: Doctor's Order 5 mg PO DAILY 90 tabs 0RF Coding Level of Care Code Est Pt Level 4 (05903) Diagnoses Hypertension I10 Hyperlipidemia E78.5 Diabetes E11.9
== END 2024-01-23 14:44 | disposition home or self-care (01) ==
PROVIDERS: PCP Internal Medicine; Visit Provider Internal Medicine
DX: I10 Essential (primary) hypertension (principal); E78.5 Hyperlipidemia, unspecified; E11.9 Type 2 diabetes mellitus without complications
CPT/HCPCS: 99214

== ENCOUNTER 2024-06-26 08:30 | Outpatient (REF) | payer OTHER, SELFPAY ==
[2024-06-26 11:54] LABS: Estimated Average Glucose 148 mg/dL; Hemoglobin A1c % 6.8 % (<6.0); Total Hemoglobin (HGBA1C) 3564.6888 umol/L
[2024-06-26 12:09] LABS: Alanine Aminotransferase 20 U/L (0-40); Albumin Level 4.4 g/dL (3.5-5.0); Alkaline Phosphatase 48 U/L (39-117); Anion Gap 12 (12-20); Aspartate Amino Transferase 19 U/L (5-37); Bilirubin Total 0.7 mg/dL (0.0-1.0); Blood Urea Nitrogen 17 mg/dL (9-16); Calcium 9.6 mg/dL (8.4-10.2); Carbon Dioxide 25 mmol/L (22-29); Chloride 105 mmol/L (96-108); Cholesterol 141 mg/dL (<200); Estimated Glomerular Filt Rate > 60; Glucose Fasting 123 mg/dL (60-99); HDL Cholesterol 34 mg/dL (>40); LDL Cholesterol Calculated 81 mg/dL (<100); Potassium 4.2 mmol/L (3.3-5.1); Sodium 138 mmol/L (135-145); Total Protein 7.7 g/dL (6.5-8.0); Triglycerides 133 mg/dL (<150)
[2024-06-26 12:26] LABS: Creatinine Urine 123.39 mg/dL; Microalbum/Creatinine Ratio Ur 112.6 ug/mg cr (<30)
== END 2024-06-26 08:31 | disposition home or self-care (01) ==
LOC: HO.HMGCLDS 08:30
PROVIDERS: PCP Internal Medicine; Visit Provider Internal Medicine
DX: I10 Essential (primary) hypertension (principal); E78.5 Hyperlipidemia, unspecified; E11.9 Type 2 diabetes mellitus without complications
CPT/HCPCS: 36415; 80053; 80061; 82043; 82570; 83036

== ENCOUNTER 2024-07-01 12:44 | Outpatient (AMB) | payer OTHER, MEDICAID, SELFPAY ==
[2024-07-01 12:59] VITALS: BP 134/80; PULSE 87; O2SAT 94; BMI 33.8
--- NOTE | 2024-07-01 12:59 | A.OFFPC_ITS ---
Vital Signs 07/01/24 12:59 Height 5 ft 8 in Weight 222 lb BMI 33.8 BP 134/80 Blood Pressure Location Lt brachial Position Sitting Pulse 87 Pulse Source Pulse Oximeter Pulse Oximetry (%) 94 Oxygen Delivery Method Room Air Intake Visit Reasons: Annual PE Intake Note: Pt is here today for PE. Allergies penicillin V Allergy (Unknown, Verified 07/01/24 13:01) Unknown Medication List - Last Reconciled 07/01/24 by Delma Burks MD amlodipine 7.5 mg (1.5 x 5 mg) PO DAILY aspirin 81 mg PO DAILY blood sugar diagnostic (FreeStyle Lite Strips) test once a day blood-glucose meter (FreeStyle Lite Meter kit) As directed glipizide 5 mg PO DAILY metoprolol succinate ER 50 mg PO DAILY omeprazole 20 mg PO DAILY paroxetine HCl 20 mg PO DAILY potassium citrate ER 20 mEq (2 x 10 mEq (1,080 mg)) PO BID pravastatin 20 mg PO DAILY semaglutide (Ozempic) 2 mg (0.75 mL) subcut QWEEK Tobacco use date assessed: 07/01/24 Dental Screening Dental Screen Date: 01/23/24 HPI Annual PE HPI Details Patient presents for a physical. He complains of constipation and intermittent vomiting when trying to eat a full meal on higher dose of Ozempic. [facility] Medical History (Updated 07/01/24 @ 13:35 by Delma Burks MD) Nephrolithiasis Annual physical exam Anemia Diabetic neuropathy Microalbuminuria Anxiety Diabetes Hyperlipidemia Hypertension Surgical History H/O colonoscopy Family History Father CVD (cardiovascular disease) Mother Stroke Social History Housing: House Alcohol intake: current Alcohol intake frequency: a few times a month Patient Tobacco Use Status: Never used Tobacco e-Cigarette/Vaping Use: Never Used service: No Current occupational status: employed Cognitive needs: No Hearing needs: No Vision needs: No Questionnaire Thrive Questionnaire Date Thrive assessed: 01/23/24 LARISSA-7 AMB Questionnaire ALRISSA-7 Date LARISSA - 7 assessed: 01/23/24 Source: Developed by Alexandra OrtizW. Jarrod, Meng Ventura and colleagues, with an educational samir from [employer]. Review of Systems Const All systems reviewed & are unremarkable except as noted in HPI and below Eyes Reports no additional complaints ENT Reports no additional complaints Card Reports no additional complaints Resp Reports no additional complaints GI Reports no additional complaints Reports no additional complaints Physical exam (Primary Care) Vital Signs: Last Vital Signs Pulse 87 07/01/24 12:59 BP 134/80 07/01/24 12:59 Pulse Ox 94 07/01/24 12:59 Oxygen Delivery Method Room Air 07/01/24 12:59 BMI result Body Mass Index 33.8 Tobacco/Smoking Status: Tobacco use Status Tobacco use date assessed 07/01/24 07/01/24 13:08 Patient Tobacco Use Status Never used Tobacco 07/01/24 13:08 e-Cigarette/Vaping Use Never Used 07/01/24 13:08 Thrive Assessment: Date of Thrive Assessment Date Thrive assessed 01/23/24 07/01/24 13:08 Const General: no acute distress HENMT Head: Yes normal to inspection Ears: hearing grossly normal bilaterally Face and sinus: Yes normal facial exam Eyes General: appearance normal, both eyes and all related structures Neck Neck: Yes supple Resp Effort & Inspection: normal respiratory effort Auscultation: clear to auscultation bilaterally Cardio Rhythm: regular rhythm Heart sounds: S1 normal heart sound present and S2 normal heart sound present GI Inspection: Yes normal to inspection Palpation (GI): Soft to palpation Percussion: Yes normal to percussion Auscultation: normal bowel sounds Coding Level of Care Code Est Pt Prev Care 40-64y(89504) Diagnoses Hypertension I10 Microalbuminuria R80.9 Hyperlipidemia E78.5 Diabetes E11.9 Annual physical exam Z00.00 Nephrolithiasis N20.0 Assessment & Plan Assessment & Plan (1) Hypertension: Code(s): I10 - Essential (primary) hypertension Category: Medical Plan: Continue current medications (2) Microalbuminuria: Code(s): R80.9 - Proteinuria, unspecified Category: Medical Plan: Continue current medications monitor microalbumin restart Farxiga (3) Hyperlipidemia: Code(s): E78.5 - Hyperlipidemia, unspecified Category: Medical Plan: Continue statin (4) Diabetes: Code(s): E11.9 - Type 2 diabetes mellitus without complications Category: Medical Plan: A1c is 6.8, ADA diet increase physical activity weight loss discussed with the patient. Continue current medications follow-up in 3 months (5) Annual physical exam: Code(s): Z00.00 - Encounter for general adult medical examination without abnormal findings Category: Medical Plan: Well-balanced diet regular physical activity discussed with the patient. He had negative Cologuard last year (6) Nephrolithiasis: Comment: f/u urology Dr. Barnett Code(s): N20.0 - Calculus of kidney Category: Medical Plan: Follow-up with urology Medications: Changed From amlodipine 7.5 mg (1.5 x 5 mg) PO DAILY 135 tabs 3RF To amlodipine 5 mg PO DAILY 90 tabs 3RF Refilled lisinopril 40 mg PO DAILY 90 tabs 3RF semaglutide (Ozempic) 2 mg (0.75 mL) subcut QWEEK 9 mL 3RF dapagliflozin propanediol (Farxiga) 10 mg PO DAILY 90 tabs 3RF metformin ER 1,000 mg (2 x 500 mg) PO BID 360 tabs 3RF
== END 2024-07-01 13:36 | disposition home or self-care (01) ==
PROVIDERS: PCP Internal Medicine; Visit Provider Internal Medicine
DX: Z00.00 Encounter for general adult medical examination without abnormal findings (principal); E11.69 Type 2 diabetes mellitus with other specified complication; E78.5 Hyperlipidemia, unspecified; I10 Essential (primary) hypertension; R80.9 Proteinuria, unspecified; N20.0 Calculus of kidney

== ENCOUNTER → 2024-07-01 12:44 | Outpatient (BNVA) | payer OTHER, MEDICAID, SELFPAY | PROVIDERS: PCP Internal Medicine; Visit Provider Internal Medicine ==

== ENCOUNTER 2024-10-02 06:34 | Outpatient (REF) | payer OTHER, SELFPAY ==
[2024-10-02 11:58] LABS: MANUAL DIFF FLAG NO
[2024-10-02 12:03] LABS: Basophils Absolute Auto 0.1 X10*3/uL (0.0-0.2); Basophils Percent Auto 0.9 % (0-2); Eosinophils Absolute Auto 0.4 X10*3/uL (0.0-0.4); Eosinophils Percent Auto 6.4 % (0-4); Hematocrit 40.6 % (42.0-52.0); Hemoglobin 14.3 g/dl (14.0-18.0); Imm Gran Abs Auto 0.03 X10*3/uL (0.00-0.03); Imm Gran Pct Auto 0.5 % (0.0-0.4); Lymphocytes Absolute Auto 1.6 X10*3/uL (1.2-4.9); Mean Corpuscular HGB Conc 35.2 g/dl (31.0-36.0); Mean Corpuscular Volume 87.9 fL (80.0-98.0); Mean Platelet Volume 9.8 fL (9.4-12.4); Monocytes Absolute Auto 0.4 X10*3/uL (0.1-1.2); Monocytes Percent Auto 6.6 % (2-11); Neutrophils Absolute Auto 3.3 x10*3/uL (2.0-8.3); Neutrophils Percent Auto 57.6 % (45-73); Platelet Count 264 X10*3/uL (160-400); Red Blood Count 4.62 X10*6/uL (4.60-5.80); Red Cell Distribution Width 11.9 % (11.0-16.0); White Blood Count 5.7 X10*3/uL (4.8-10.8)
[2024-10-02 12:23] LABS: Alanine Aminotransferase 24 U/L (0-40); Albumin Level 4.3 g/dL (3.5-5.0); Alkaline Phosphatase 45 U/L (39-117); Anion Gap 7 (12-20); Bilirubin Total 0.5 mg/dL (0.0-1.0); Blood Urea Nitrogen 14 mg/dL (9-16); Calcium 9.2 mg/dL (8.4-10.2); Carbon Dioxide 27 mmol/L (22-29); Chloride 106 mmol/L (96-108); Cholesterol 113 mg/dL (<200); Estimated Glomerular Filt Rate > 60; Glucose Fasting 112 mg/dL (60-99); Sodium 136 mmol/L (135-145); Total Protein 7.8 g/dL (6.5-8.0); Triglycerides 81 mg/dL (<150)
[2024-10-02 12:27] LABS: Estimated Average Glucose 169 mg/dL; Hemoglobin A1C 214.2101 umol/L; Hemoglobin A1c % 7.5 % (<6.0); Total Hemoglobin (HGBA1C) 3689.5497 umol/L
[2024-10-02 12:30] LABS: Creatinine Urine 131.14 mg/dL; Microalbum/Creatinine Ratio Ur 128.8 ug/mg cr (<30)
[2024-10-02 13:06] LABS: Aspartate Amino Transferase 28 U/L (5-37); HDL Cholesterol 28 mg/dL (>40); LDL Cholesterol Calculated 69 mg/dL (<100)
== END 2024-10-02 06:35 | disposition home or self-care (01) ==
LOC: HO.HMGCLDS 06:34
PROVIDERS: PCP Internal Medicine; Visit Provider Internal Medicine
DX: E78.5 Hyperlipidemia, unspecified (principal); E11.9 Type 2 diabetes mellitus without complications; I10 Essential (primary) hypertension; R80.9 Proteinuria, unspecified
CPT/HCPCS: 36415; 80053; 80061; 82043; 82570; 83036; 85025

== ENCOUNTER 2024-10-05 13:33 | Outpatient (AMB) | payer OTHER, MEDICAID, SELFPAY ==
[2024-10-05 13:43] VITALS: BP 120/74; PULSE 88; O2SAT 95; BMI 33.8
--- NOTE | 2024-10-05 13:43 | MHC.PC.OV ---
Vital Signs 10/05/24 13:43 Height 5 ft 8 in Weight 222 lb BMI 33.8 BP 120/74 Blood Pressure Location Lt brachial Position Sitting Pulse 88 Pulse Source Pulse Oximeter Pulse Oximetry (%) 95 Oxygen Delivery Method Room Air Intake Visit Reasons: 3 months follow up Intake Note: Pt is here today for 3 months follow up visit on DM and labs. Allergies penicillin V Allergy (Unknown, Verified 10/05/24 14:01) Unknown Medication List - Last Reconciled 10/05/24 by Delma Burks MD amlodipine 5 mg PO DAILY aspirin 81 mg PO DAILY blood sugar diagnostic (FreeStyle Lite Strips) test once a day blood-glucose meter (FreeStyle Lite Meter kit) As directed dapagliflozin propanediol (Farxiga) 10 mg PO DAILY glipizide 5 mg PO DAILY lisinopril 40 mg PO DAILY metformin ER 1,000 mg (2 x 500 mg) PO BID metoprolol succinate ER 50 mg PO DAILY omeprazole 20 mg PO DAILY paroxetine HCl 20 mg PO DAILY potassium citrate ER 20 mEq (2 x 10 mEq (1,080 mg)) PO BID pravastatin 20 mg PO DAILY semaglutide (Ozempic) 2 mg (0.75 mL) subcut QWEEK Tobacco use date assessed: 10/05/24 Dental Screening Dental Screen Date: 10/05/24 Did you have a dental visit in the last 12 months?: Yes Did you have a dental problem in the last 6 months where you did not have access to dental care?: No Was dental information given to patient?: Patient has dentist HPI 3 months follow up HPI Details Patient presents for the follow-up of type 2 diabetes hypertension hyperlipidemia chronic anxiety. He has been using Ozempic but reports feeling nauseous for 24 hours after the injections. He reports improving fasting blood glucose down to 110. Patient lost 10 lb since June. He has not been taking Farxiga for unclear reason. [facility] Medical History Nephrolithiasis Annual physical exam Anemia Diabetic neuropathy Microalbuminuria Anxiety Diabetes Hyperlipidemia Hypertension Surgical History H/O colonoscopy Family History Father CVD (cardiovascular disease) Mother Stroke Social History Housing: House Alcohol intake: current Alcohol intake frequency: a few times a month Patient Tobacco Use Status: Never used Tobacco e-Cigarette/Vaping Use: Never Used service: No Current occupational status: employed Cognitive needs: No Hearing needs: No Vision needs: No Questionnaire PHQ-9 Over the last 2 weeks, how often have you been bothered by any of the following problems? 1. Little interest or pleasure in doing things: not at all 2. Feeling down, depressed, or hopeless: not at all 3. Trouble falling or staying asleep, or sleeping too much: not at all 4. Feeling tired or having little energy: not at all 5. Poor appetite or overeating: not at all 6. Feeling bad about yourself - or that you are a failure or have let yourself or your family down: not at all 7. Trouble concentrating on things, such as reading the newspaper or watching television: not at all 8. Moving or speaking so slowly that other people could have noticed. Or the opposite - being so fidgety or restless that you have been moving around a lot more than usual: not at all 9. Thoughts that you would be better off or of hurting yourself in some way: not at all Total score: 0 Depression Screening Interpretation: Negative Depression Screening Done: Yes 97343 - PHQ-9 Billing: Yes Source: Developed by Drs. Kimo Sagastume, Alexandra Garay, Meng Ventura and colleagues, with an educational samir from [employer]. Thrive Questionnaire Date Thrive assessed: 10/05/24 I am a: Patient What is your living situation today?: I have a steady place to live Within the past 12 months, did the food you bought not last and you didn't have the money to get more?: Never true Within the past 12 months, did you worry whether your food would run out before you got money to buy more?: Never true Do you have trouble paying for medicines?: No Do you have trouble getting transportation to medical appointments?: No Do you have trouble paying your heating and electricity bill?: No Do you have trouble taking care of your child, family member or friend?: No Do you have trouble with day-to-day activities such as bathing, preparing meals, shopping, managing finances, etc.?: No Are you currently unemployed and looking for a job?: No Are you interested in more education?: No Please select the resources that you would like help with: None THRIVE Score: 0 AUDIT C Alcohol Use Questionnaire (AUDIT-C) 1. How often do you have a drink containing alcohol?: Monthly or less 2. How many drinks containing alcohol do you have on a typical day when you are drinking?: 1 or 2 3. How often do you have six or more drinks on one occasion?: Never Total Score: 1 LARISSA-7 AMB Questionnaire LARISSA-7 Date LARISSA - 7 assessed: 10/05/24 Feeling nervous, anxious, or on edge: 0 = Not at all Not being able to stop or control worryin = Not at all Worrying too much about different things: 0 = Not at all Trouble relaxin = Not at all Being so restless that it is hard to sit still: 0 = Not at all Becoming easily annoyed or irritable: 0 = Not at all Feeling afraid as if something awful might happen: 0 = Not at all Total LARISSA-7 score (0-4 normal; 5-9 mild; 10-14 moderate; 15-21 severe): 0 Source: Developed by Drs. Kimo Sagastume, Alexandra Garay, Meng Ventura and colleagues, with an educational samir from [employer]. LARISSA-7 Assessment Billing LARISSA-7 Assessment Tool: LARISSA-7 Assessment 83954 Review of Systems Const All systems reviewed & are unremarkable except as noted in HPI and below Eyes Reports no additional complaints ENT Reports no additional complaints Card Reports no additional complaints Resp Reports no additional complaints GI Reports no additional complaints Reports no additional complaints Physical exam (Primary Care) Vital Signs: Last Vital Signs Pulse 88 10/05/24 13:43 BP 120/74 10/05/24 13:43 Pulse Ox 95 10/05/24 13:43 Oxygen Delivery Method Room Air 10/05/24 13:43 BMI result Body Mass Index 33.8 Tobacco/Smoking Status: Tobacco use Status Tobacco use date assessed 10/05/24 10/05/24 13:50 Patient Tobacco Use Status Never used Tobacco 10/05/24 13:50 e-Cigarette/Vaping Use Never Used 10/05/24 13:43 PHQ-9: PHQ-9 Score PHQ-9: Total score 0 10/05/24 13:50 Depression Screening Interpretation: Negative Thrive Assessment: Date of Thrive Assessment Date Thrive assessed 10/05/24 10/05/24 13:50 Const General: no acute distress HENMT Head: Yes normal to inspection Face and sinus: Yes normal facial exam Eyes General: appearance normal, both eyes and all related structures Neck Neck: Yes supple Resp Effort & Inspection: normal respiratory effort Auscultation: clear to auscultation bilaterally Cardio Rhythm: regular rhythm Heart sounds: S1 normal heart sound present and S2 normal heart sound present GI Inspection: Yes normal to inspection Palpation (GI): Soft to palpation Coding Level of Care Code Est Pt Level 4 (52102) Diagnoses Diabetes E11.9 Hyperlipidemia E78.5 Hypertension I10 Additional Codes LARISSA-7 Assessment Billing - LARISSA-7 Assessment Tool: LARISSA-7 Assessment [id number] ([id number]) PHQ-9 - 18869 - PHQ-9 Billing: Yes ([id number]) Assessment & Plan Assessment & Plan (1) Diabetes: Code(s): E11.9 - Type 2 diabetes mellitus without complications Category: Medical Plan: A1c is 7.5 up from 6.8. ADA diet, regular exercise medication compliance discussed with the patient. He will restart Farxiga 10 mg a day and will continue the rest of his medications. Follow-up in 3 months with a fasting labs before (2) Hyperlipidemia: Code(s): E78.5 - Hyperlipidemia, unspecified Category: Medical Plan: Continue statin (3) Hypertension: Code(s): I10 - Essential (primary) hypertension Category: Medical Plan: Continue current medications Orders: Orders Comprehensive [place]. Panel Fast 3 Months E11.9 - Type 2 diabetes mellitus without complications, E78.5 - Hyperlipidemia, unspecified, I10 - Essential (primary) hypertension Hemoglobin A1c 3 Months E11.9 - Type 2 diabetes mellitus without complications, E78.5 - Hyperlipidemia, unspecified, I10 - Essential (primary) hypertension Complete Blood Count Auto Diff 3 Months E11.9 - Type 2 diabetes mellitus without complications, E78.5 - Hyperlipidemia, unspecified, I10 - Essential (primary) hypertension Lipid Panel 3 Months E11.9 - Type 2 diabetes mellitus without complications, E78.5 - Hyperlipidemia, unspecified, I10 - Essential (primary) hypertension Microalbumin, Random (w Creat) 3 Months E11.9 - Type 2 diabetes mellitus without complications, E78.5 - Hyperlipidemia, unspecified, I10 - Essential (primary) hypertension Medications: Refilled amlodipine 5 mg PO DAILY 90 tabs 3RF metoprolol succinate ER 50 mg PO DAILY 90 tabs 3RF I10 - Essential (primary) hypertension pravastatin 20 mg PO DAILY 90 tabs 3RF E78.5 - Hyperlipidemia, unspecified dapagliflozin propanediol (Farxiga) 10 mg PO DAILY 90 tabs 3RF lisinopril 40 mg PO DAILY 90 tabs 3RF metformin ER 1,000 mg (2 x 500 mg) PO BID 360 tabs 3RF paroxetine HCl 20 mg PO DAILY 90 tabs 3RF
== END 2024-10-05 14:30 | disposition home or self-care (01) ==
PROVIDERS: PCP Internal Medicine; Visit Provider Internal Medicine
DX: E11.9 Type 2 diabetes mellitus without complications (principal); E78.5 Hyperlipidemia, unspecified; I10 Essential (primary) hypertension

== ENCOUNTER → 2024-10-05 13:33 | Outpatient (BNVA) | payer OTHER, MEDICAID, SELFPAY | PROVIDERS: PCP Internal Medicine; Visit Provider Internal Medicine | DX: E11.9 Type 2 diabetes mellitus without complications (principal); E78.5 Hyperlipidemia, unspecified; I10 Essential (primary) hypertension; Z79.899 Other long term (current) drug therapy | CPT/HCPCS: 96127 ==

== ENCOUNTER 2025-01-01 07:17 | Outpatient (REF) | payer OTHER, SELFPAY ==
[2025-01-01 11:15] LABS: MANUAL DIFF FLAG NO
[2025-01-01 11:25] LABS: Basophils Absolute Auto 0.1 X10*3/uL (0.0-0.2); Basophils Percent Auto 0.9 % (0-2); Eosinophils Absolute Auto 0.4 X10*3/uL (0.0-0.4); Eosinophils Percent Auto 5.6 % (0-4); Hematocrit 41.3 % (42.0-52.0); Hemoglobin 14.2 g/dl (14.0-18.0); Imm Gran Abs Auto 0.02 X10*3/uL (0.00-0.03); Imm Gran Pct Auto 0.3 % (0.0-0.4); Lymphocytes Absolute Auto 2.1 X10*3/uL (1.2-4.9); Lymphocytes Percent Auto 30.1 % (20-40); Mean Corpuscular HGB Conc 34.4 g/dl (31.0-36.0); Mean Corpuscular Hemoglobin 30.7 pg (27.0-33.0); Mean Corpuscular Volume 89.2 fL (80.0-98.0); Mean Platelet Volume 9.8 fL (9.4-12.4); Monocytes Absolute Auto 0.5 X10*3/uL (0.1-1.2); Neutrophils Absolute Auto 3.9 x10*3/uL (2.0-8.3); Neutrophils Percent Auto 56.1 % (45-73); Platelet Count 257 X10*3/uL (160-400); Red Blood Count 4.63 X10*6/uL (4.60-5.80); Red Cell Distribution Width 12.4 % (11.0-16.0)
[2025-01-01 11:43] LABS: Estimated Average Glucose 108 mg/dL; Hemoglobin A1C 131.1227 umol/L; Hemoglobin A1c % 5.4 % (<6.0); Total Hemoglobin (HGBA1C) 3682.2132 umol/L
[2025-01-01 11:58] LABS: Alanine Aminotransferase 18 U/L (0-40); Albumin Level 4.1 g/dL (3.5-5.0); Alkaline Phosphatase 43 U/L (39-117); Anion Gap 10 (12-20); Aspartate Amino Transferase 26 U/L (5-37); Bilirubin Total 0.6 mg/dL (0.0-1.0); Blood Urea Nitrogen 16 mg/dL (9-16); Calcium 9.3 mg/dL (8.4-10.2); Carbon Dioxide 27 mmol/L (22-29); Chloride 105 mmol/L (96-108); Cholesterol 112 mg/dL (<200); Estimated Glomerular Filt Rate > 60; Glucose Fasting 96 mg/dL (60-99); HDL Cholesterol 32 mg/dL (>40); LDL Cholesterol Calculated 66 mg/dL (<100); Potassium 3.9 mmol/L (3.3-5.1); Sodium 138 mmol/L (135-145); Total Protein 7.2 g/dL (6.5-8.0); Triglycerides 71 mg/dL (<150)
[2025-01-01 12:25] LABS: Creatinine Urine 144.94 mg/dL; Microalbum/Creatinine Ratio Ur 95.9 ug/mg cr (<30)
== END 2025-01-01 07:18 | disposition home or self-care (01) ==
LOC: HO.HMGCLDS 07:17
PROVIDERS: PCP Internal Medicine; Visit Provider Internal Medicine
DX: E78.5 Hyperlipidemia, unspecified (principal); E11.9 Type 2 diabetes mellitus without complications; I10 Essential (primary) hypertension
CPT/HCPCS: 36415; 80053; 80061; 82043; 82570; 83036; 85025

== ENCOUNTER 2025-01-05 13:45 | Outpatient (AMB) | payer OTHER, SELFPAY ==
--- NOTE | 2025-01-05 13:54 | A.OFFPC_ITS ---
Vital Signs 01/05/25 14:01 Height 5 ft 8 in Weight 220 lb BMI 33.4 BP 118/70 Blood Pressure Location Lt brachial Position Sitting Respiration 18 Pulse 77 Pulse Source Pulse Oximeter Pulse Oximetry (%) 95 Oxygen Delivery Method Room Air Intake Visit Reasons: 3m follow up Intake Note: Pt is here today for 3 months follow up visit. Allergies penicillin V Allergy (Unknown, Verified 10/05/24 14:01) Unknown Medication List - Last Reconciled 01/05/25 by Delma Burks MD amlodipine 5 mg PO DAILY aspirin 81 mg PO DAILY blood sugar diagnostic (FreeStyle Lite Strips) test once a day blood-glucose meter (FreeStyle Lite Meter kit) As directed dapagliflozin propanediol (Farxiga) 10 mg PO DAILY glipizide 5 mg PO DAILY lisinopril 40 mg PO DAILY metformin ER 1,000 mg (2 x 500 mg) PO BID metoprolol succinate ER 50 mg PO DAILY omeprazole 20 mg PO DAILY paroxetine HCl 20 mg PO DAILY potassium citrate ER 20 mEq (2 x 10 mEq (1,080 mg)) PO BID pravastatin 20 mg PO DAILY semaglutide (Ozempic) 2 mg (0.75 mL) subcut QWEEK Tobacco use date assessed: 01/05/25 Dental Screening Dental Screen Date: 10/05/24 HPI 3m follow up HPI Details Patient presents for the follow-up of hypertension hyperlipidemia type 2 diabetes. He reports episodes of hypoglycemia in the mornings down to 70s. Patient has been tolerating Ozempic better PFSH Medical History Nephrolithiasis Annual physical exam Anemia Diabetic neuropathy Microalbuminuria Anxiety Diabetes Hyperlipidemia Hypertension Surgical History H/O colonoscopy Family History Father CVD (cardiovascular disease) Mother Stroke Social History Housing: House Alcohol intake: current Alcohol intake frequency: a few times a month Patient Tobacco Use Status: Never used Tobacco e-Cigarette/Vaping Use: Never Used service: No Current occupational status: employed Cognitive needs: No Hearing needs: No Vision needs: No Questionnaire Thrive Questionnaire Date Thrive assessed: 10/05/24 LARISSA-7 AMB Questionnaire LARISSA-7 Date LARISSA - 7 assessed: 10/05/24 Source: Developed by Drs. Kimo Sagastume, Alexandra Garay, Meng Ventura and colleagues, with an educational samir from [email or web address]. Review of Systems Const All systems reviewed & are unremarkable except as noted in HPI and below Eyes Reports no additional complaints ENT Reports no additional complaints Card Reports no additional complaints Resp Reports no additional complaints GI Reports no additional complaints Reports no additional complaints Physical exam (Primary Care) Vital Signs: Last Vital Signs Pulse 77 01/05/25 14:01 Resp 18 01/05/25 14:01 BP 118/70 01/05/25 14:01 Pulse Ox 95 01/05/25 14:01 Oxygen Delivery Method Room Air 01/05/25 14:01 BMI result Body Mass Index 33.4 Tobacco/Smoking Status: Tobacco use Status Tobacco use date assessed 01/05/25 01/05/25 14:05 Patient Tobacco Use Status Never used Tobacco 01/05/25 13:54 e-Cigarette/Vaping Use Never Used 01/05/25 13:54 Thrive Assessment: Date of Thrive Assessment Date Thrive assessed 10/05/24 01/05/25 13:54 Const General: no acute distress HENMT Head: Yes normal to inspection Face and sinus: Yes normal facial exam Mouth: Normal oral and palatal mucosa present Eyes General: appearance normal, both eyes and all related structures Resp Effort & Inspection: normal respiratory effort Auscultation: clear to auscultation bilaterally Cardio Rhythm: regular rhythm Heart sounds: S1 normal heart sound present and S2 normal heart sound present GI Inspection: Yes normal to inspection Palpation (GI): Soft to palpation Percussion: Yes normal to percussion Coding Level of Care Code Est Pt Level 4 (67788) Diagnoses Diabetes E11.9 Hyperlipidemia E78.5 Hypertension I10 Assessment & Plan Assessment & Plan (1) Diabetes: Code(s): E11.9 - Type 2 diabetes mellitus without complications Category: Medical Plan: A1c is 5.4. ADA diet regular physical activity discussed with the patient he will stop glipizide continue Ozempic metformin and Farxiga. Follow-up in 3 months with a fasting labs before (2) Hyperlipidemia: Code(s): E78.5 - Hyperlipidemia, unspecified Category: Medical Plan: Continue statin (3) Hypertension: Code(s): I10 - Essential (primary) hypertension Category: Medical Plan: Continue current medications Orders: Orders Comprehensive [place]. Panel Fast 3 Months E11.9 - Type 2 diabetes mellitus without complications, E78.5 - Hyperlipidemia, unspecified, I10 - Essential (primary) hypertension Microalbumin, Random (w Creat) 3 Months E11.9 - Type 2 diabetes mellitus without complications, E78.5 - Hyperlipidemia, unspecified, I10 - Essential (primary) hypertension Hemoglobin A1c 3 Months E11.9 - Type 2 diabetes mellitus without complications, E78.5 - Hyperlipidemia, unspecified, I10 - Essential (primary) hypertension Lipid Panel 3 Months E11.9 - Type 2 diabetes mellitus without complications, E78.5 - Hyperlipidemia, unspecified, I10 - Essential (primary) hypertension Medications: New albuterol sulfate 90 mcg/actuation 2 puffs inhalation Q6H PRN 6.7 grams 1RF shortness of breath or wheezing Discontinued glipizide Discontinued Reason: Duplicate 5 mg PO DAILY 90 tabs 1RF
[2025-01-05 14:01] VITALS: BP 118/70; PULSE 77; RESP 18; O2SAT 95; BMI 33.4
== END 2025-01-05 14:23 | disposition home or self-care (01) ==
LOC: HO.HMCC 13:46
PROVIDERS: PCP Internal Medicine; Visit Provider Internal Medicine
DX: E11.9 Type 2 diabetes mellitus without complications (principal); E78.5 Hyperlipidemia, unspecified; I10 Essential (primary) hypertension

== ENCOUNTER → 2025-01-05 13:45 | Outpatient (BNVA) | payer OTHER, SELFPAY | PROVIDERS: PCP Internal Medicine; Visit Provider Internal Medicine ==

== ENCOUNTER 2025-04-02 07:24 | Outpatient (REF) | payer OTHER, SELFPAY ==
[2025-04-02 12:10] LABS: Hemoglobin A1C 134.3097 umol/L; Total Hemoglobin (HGBA1C) 3531.5845 umol/L
[2025-04-02 12:25] LABS: Alanine Aminotransferase 27 U/L (0-40); Albumin Level 4.3 g/dL (3.5-5.0); Alkaline Phosphatase 40 U/L (39-117); Anion Gap 10 (12-20); Aspartate Amino Transferase 23 U/L (5-37); Blood Urea Nitrogen 17 mg/dL (9-16); Calcium 8.8 mg/dL (8.4-10.2); Carbon Dioxide 26 mmol/L (22-29); Chloride 106 mmol/L (96-108); Cholesterol 127 mg/dL (<200); Estimated Glomerular Filt Rate > 60; HDL Cholesterol 33 mg/dL (>40); Potassium 4.1 mmol/L (3.3-5.1); Sodium 138 mmol/L (135-145); Total Protein 7.4 g/dL (6.5-8.0); Triglycerides 124 mg/dL (<150)
[2025-04-02 12:28] LABS: Microalbum/Creatinine Ratio Ur 133.6 ug/mg cr (<30)
== END 2025-04-02 07:25 | disposition home or self-care (01) ==
LOC: HO.HMGCLDS 07:24
PROVIDERS: PCP Internal Medicine; Visit Provider Internal Medicine
DX: E11.9 Type 2 diabetes mellitus without complications (principal); E78.5 Hyperlipidemia, unspecified; I10 Essential (primary) hypertension
CPT/HCPCS: 36415; 80053; 80061; 82043; 82570; 83036

== ENCOUNTER 2025-04-07 13:52 | Outpatient (AMB) | payer OTHER, SELFPAY ==
[2025-04-07 14:15] VITALS: BP 104/70; PULSE 77; RESP 18; TEMP 36.8; O2SAT 97; BMI 32.7
--- NOTE | 2025-04-07 14:15 | A.OFFPC_ITS ---
Vital Signs 04/07/25 14:15 Height 5 ft 8 in Weight 215 lb BMI 32.7 BP 104/70 Blood Pressure Location Lt brachial Position Sitting Respiration 18 Pulse 77 Pulse Source Pulse Oximeter Temp 98.2 F Temp Source Oral Pulse Oximetry (%) 97 Oxygen Delivery Method Room Air Intake Visit Reasons: 3m follow up Allergies penicillin V Allergy (Unknown, Verified 04/07/25 14:18) Unknown Medication List - Last Reconciled 04/07/25 by Delma Burks MD albuterol sulfate 90 mcg/actuation 2 puffs inhalation Q6H PRN amlodipine 5 mg PO DAILY aspirin 81 mg PO DAILY blood sugar diagnostic (FreeStyle Lite Strips) test once a day blood-glucose meter (FreeStyle Lite Meter kit) As directed dapagliflozin propanediol (Farxiga) 10 mg PO DAILY metformin ER 1,000 mg (2 x 500 mg) PO BID metoprolol succinate ER 50 mg PO DAILY omeprazole 20 mg PO DAILY paroxetine HCl 20 mg PO DAILY potassium citrate ER 20 mEq (2 x 10 mEq (1,080 mg)) PO BID pravastatin 20 mg PO DAILY semaglutide (Ozempic) 2 mg (0.75 mL) subcut QWEEK umeclidinium-vilanterol 62.5-25 mcg/actuation (Anoro Ellipta) 1 inh inhalation DAILY valsartan 320 mg PO DAILY Tobacco use date assessed: 04/07/25 Dental Screening Dental Screen Date: 10/05/24 HPI 3m follow up HPI Details Patient presents for the follow-up of hypertension type 2 diabetes hyperlipidemia. He complains of persistent cough with occasional white sputum worse when laying down in bed with intermittent wheezing. Patient denies shortness or breath pleurisy fever chills night sweats PND orthopnea chest pain. he has been using albuterol on and off with some relief. [facility] Medical History Nephrolithiasis Annual physical exam Anemia Diabetic neuropathy Microalbuminuria Anxiety Diabetes Hyperlipidemia Hypertension Surgical History H/O colonoscopy Family History Father CVD (cardiovascular disease) Mother Stroke Social History Housing: House Alcohol intake: current Alcohol intake frequency: a few times a month Patient Tobacco Use Status: Never used Tobacco e-Cigarette/Vaping Use: Never Used service: No Current occupational status: employed Cognitive needs: No Hearing needs: No Vision needs: No Questionnaire Thrive Questionnaire Date Thrive assessed: 10/05/24 LARISSA-7 AMB Questionnaire LARISSA-7 Date LARISSA - 7 assessed: 10/05/24 Source: Developed by Drs. Kimo Sagastume, Alexandra Garay, Meng Ventura and colleagues, with an educational samir from [employer]. Review of Systems Const All systems reviewed & are unremarkable except as noted in HPI and below Eyes Reports no additional complaints ENT Reports no additional complaints Card Reports no additional complaints Resp Reports no additional complaints GI Reports no additional complaints Reports no additional complaints Physical exam (Primary Care) Vital Signs: Last Vital Signs Temp 98.2 F 04/07/25 14:15 Pulse 77 04/07/25 14:15 Resp 18 04/07/25 14:15 BP 104/70 04/07/25 14:15 Pulse Ox 97 04/07/25 14:15 Oxygen Delivery Method Room Air 04/07/25 14:15 BMI result Body Mass Index 32.7 Tobacco/Smoking Status: Tobacco use Status Tobacco use date assessed 04/07/25 04/07/25 14:23 Patient Tobacco Use Status Never used Tobacco 04/07/25 14:18 e-Cigarette/Vaping Use Never Used 04/07/25 14:18 Thrive Assessment: Date of Thrive Assessment Date Thrive assessed 10/05/24 04/07/25 14:18 Const General: no acute distress HENMT Head: Yes normal to inspection Mouth: Normal oral and palatal mucosa present Throat: Yes posterior oropharynx normal Eyes General: appearance normal, both eyes and all related structures Neck Neck: Yes no lymphadenopathy and Yes supple Resp Effort & Inspection: normal respiratory effort Auscultation: rhonchi, wheezes and diminished lung sounds Cardio Rhythm: regular rhythm Heart sounds: S1 normal heart sound present and S2 normal heart sound present GI Inspection: Yes normal to inspection Palpation (GI): Soft to palpation Percussion: Yes normal to percussion Coding Level of Care Code Est Pt Level 4 (18266) Diagnoses Cough R05.9 Hypertension I10 Hyperlipidemia E78.5 Diabetes E11.9 Assessment & Plan Assessment & Plan (1) Cough: Code(s): R05.9 - Cough, unspecified Category: Medical Plan: For persistent cough lisinopril will be changed to valsartan 320 mg chest x-ray will be obtained and Anoro we will be tried. Patient will follow-up in 1 month (2) Hypertension: Code(s): I10 - Essential (primary) hypertension Category: Medical Plan: Continue current medications (3) Hyperlipidemia: Code(s): E78.5 - Hyperlipidemia, unspecified Category: Medical Plan: Continue statin (4) Diabetes: Code(s): E11.9 - Type 2 diabetes mellitus without complications Category: Medical Plan: A1c is 5.6, continue current medications ADA diet regular exercise Medications: New valsartan 320 mg PO DAILY 90 tabs 3RF umeclidinium-vilanterol 62.5-25 mcg/actuation (Anoro Ellipta) 1 inh inhalation DAILY 60 ea 4RF Discontinued lisinopril Discontinued Reason: Doctor's Order 40 mg PO DAILY 90 tabs 3RF
== END 2025-04-07 14:52 | disposition home or self-care (01) ==
LOC: HO.HMCC 13:53
PROVIDERS: PCP Internal Medicine; Visit Provider Internal Medicine
DX: R05.9 Cough, unspecified (principal); I10 Essential (primary) hypertension; E78.5 Hyperlipidemia, unspecified; E11.9 Type 2 diabetes mellitus without complications

== ENCOUNTER 2025-04-07 13:52 | Outpatient (REF) | payer OTHER, SELFPAY ==
--- NOTE | ~2025-04-07 | XR_ITS ---
EXAMINATION: XR CHEST CLINICAL INFORMATION: R05.9 - Cough, unspecified COMPARISON: 10/12/2019. TECHNIQUE: 2 views of the chest were obtained. FINDINGS: The cardiac, hilar, and mediastinal contours are normal. The lungs are clear bilaterally. There is no pneumothorax or pleural effusion. There is no focal osseous or soft tissue abnormality. There are degenerative changes throughout the spine. XR/XR chest 2V IMPRESSION: No active pulmonary disease. Electronically signed by: Musa Ramirez MD 04/07/2025 03:10 PM EDT
== END 2025-04-07 13:53 | disposition home or self-care (01) ==
LOC: HO.HMGCX 13:52
PROVIDERS: PCP Internal Medicine; Visit Provider Internal Medicine
DX: R05.9 Cough, unspecified (principal); I10 Essential (primary) hypertension; E78.5 Hyperlipidemia, unspecified; E11.9 Type 2 diabetes mellitus without complications; Z79.899 Other long term (current) drug therapy
CPT/HCPCS: 71046

== ENCOUNTER → 2025-04-07 14:56 | Outpatient (BNV) | payer OTHER, SELFPAY | PROVIDERS: PCP Internal Medicine; Visit Provider Radiology Diagnostic Radiology | DX: R05.9 Cough, unspecified (principal) | CPT/HCPCS: 71046 ==

== ENCOUNTER 2025-06-14 12:46 | Outpatient (AMB) | payer OTHER, SELFPAY ==
--- NOTE | 2025-06-14 12:48 | A.OFFPC_ITS ---
Vital Signs 06/14/25 12:59 Height 5 ft 8 in Weight 215 lb BMI 32.7 BP 118/80 Blood Pressure Location Lt brachial Position Sitting Respiration 18 Pulse 83 Pulse Source Pulse Oximeter Temp 98.6 F Temp Source Oral Pulse Oximetry (%) 95 Oxygen Delivery Method Room Air Intake Visit Reasons: 1m follow up Intake Note: Pt is here today for 1 month follow up visit. Pt states that he has been having cough, chest congestion for almost a week. Allergies penicillin V Allergy (Unknown, Verified 04/07/25 14:18) Unknown Medication List - Last Reconciled 06/14/25 by Delma Burks MD albuterol sulfate 90 mcg/actuation 2 puffs inhalation Q6H PRN aspirin 81 mg PO DAILY blood sugar diagnostic (FreeStyle Lite Strips) test once a day blood-glucose meter (FreeStyle Lite Meter kit) As directed dapagliflozin propanediol (Farxiga) 10 mg PO DAILY metoprolol succinate ER 50 mg PO DAILY omeprazole 20 mg PO DAILY paroxetine HCl 20 mg PO DAILY potassium citrate ER 20 mEq (2 x 10 mEq (1,080 mg)) PO BID pravastatin 20 mg PO DAILY semaglutide (Ozempic) 2 mg (0.75 mL) subcut QWEEK umeclidinium-vilanterol 62.5-25 mcg/actuation (Anoro Ellipta) 1 inh inhalation DAILY valsartan 320 mg PO DAILY Tobacco use date assessed: 06/14/25 Dental Screening Dental Screen Date: 10/05/24 HPI 1m follow up HPI Details Pt presents complaining of intermittent cough with clear sputum and increased wheezing for 2 weeks started after patient was trimming bushes. He denies fever chills sore throat pleurisy shortness or breath. He has started taking Regina with some improvement. Patient used to take Anoro inhaler but stopped 2 months ago because of high parr. He has not been using albuterol inhaler. Patient has stopped taking metformin because his blood glucose readings were low in 70s on the last 2 months. Patient has not been taking amlodipine for a month because he did not get a refill from the pharmacy. [facility] Medical History Nephrolithiasis Annual physical exam Anemia Diabetic neuropathy Microalbuminuria Anxiety Diabetes Hyperlipidemia Hypertension Surgical History H/O colonoscopy Family History Father CVD (cardiovascular disease) Mother Stroke Social History Housing: House Alcohol intake: current Alcohol intake frequency: a few times a month Patient Tobacco Use Status: Never used Tobacco e-Cigarette/Vaping Use: Never Used service: No Current occupational status: employed Cognitive needs: No Hearing needs: No Vision needs: No Questionnaire PHQ-9 Over the last 2 weeks, how often have you been bothered by any of the following problems? 1. Little interest or pleasure in doing things: not at all 2. Feeling down, depressed, or hopeless: not at all 3. Trouble falling or staying asleep, or sleeping too much: not at all 4. Feeling tired or having little energy: not at all 5. Poor appetite or overeating: not at all 6. Feeling bad about yourself - or that you are a failure or have let yourself or your family down: not at all 7. Trouble concentrating on things, such as reading the newspaper or watching television: not at all 8. Moving or speaking so slowly that other people could have noticed. Or the opposite - being so fidgety or restless that you have been moving around a lot more than usual: not at all 9. Thoughts that you would be better off or of hurting yourself in some way: not at all Total score: 0 Depression Screening Interpretation: Negative Depression Screening Done: Yes Source: Developed by Drs. Kimo Sagastume, Alexandra Garay, Meng Ventura and colleagues, with an educational samir from [employer]. Thrive Questionnaire Date Thrive assessed: 10/05/24 LARISSA-7 AMB Questionnaire LARISSA-7 Date LARISSA - 7 assessed: 10/05/24 Feeling nervous, anxious, or on edge: 0 = Not at all Not being able to stop or control worryin = Not at all Worrying too much about different things: 0 = Not at all Trouble relaxin = Not at all Being so restless that it is hard to sit still: 0 = Not at all Becoming easily annoyed or irritable: 0 = Not at all Feeling afraid as if something awful might happen: 0 = Not at all Total LARISSA-7 score (0-4 normal; 5-9 mild; 10-14 moderate; 15-21 severe): 0 Source: Developed by Drs. Kimo Sagastume, Alexandra Garay, Meng Ventura and colleagues, with an educational samir from [employer]. Review of Systems Const All systems reviewed & are unremarkable except as noted in HPI and below Eyes Reports no additional complaints ENT Reports no additional complaints Card Reports no additional complaints Resp Reports no additional complaints GI Reports no additional complaints Reports no additional complaints Physical exam (Primary Care) Vital Signs: Last Vital Signs Temp 98.6 F 06/14/25 12:59 Pulse 83 06/14/25 12:59 Resp 18 06/14/25 12:59 BP 118/80 06/14/25 12:59 Pulse Ox 95 06/14/25 12:59 Oxygen Delivery Method Room Air 06/14/25 12:59 BMI result Body Mass Index 32.7 Tobacco/Smoking Status: Tobacco use Status Tobacco use date assessed 06/14/25 06/14/25 13:04 Patient Tobacco Use Status Never used Tobacco 06/14/25 12:48 e-Cigarette/Vaping Use Never Used 06/14/25 12:48 PHQ-9: PHQ-9 Score PHQ-9: Total score 0 06/14/25 13:06 Depression Screening Interpretation: Negative Thrive Assessment: Date of Thrive Assessment Date Thrive assessed 10/05/24 06/14/25 12:48 Const General: no acute distress HENMT Head: Yes normal to inspection Eyes General: appearance normal, both eyes and all related structures Neck Neck: Yes no lymphadenopathy and Yes supple Resp Effort & Inspection: normal respiratory effort and able to speak in complete sentences Auscultation: wheezes and diminished lung sounds Cardio Rhythm: regular rhythm Heart sounds: S1 normal heart sound present and S2 normal heart sound present Coding Level of Care Code Est Pt Level 4 (11136) Diagnoses Asthma J45.909 Hypertension I10 Hyperlipidemia E78.5 Diabetes E11.9 Assessment & Plan Assessment & Plan (1) Asthma: Code(s): J45.909 - Unspecified asthma, uncomplicated Category: Medical Plan: For asthma exacerbation start Breo 100/25 and albuterol as needed. Patient was advised to continue antihistamine for seasonal allergy. PFTs will be obtained. (2) Hypertension: Code(s): I10 - Essential (primary) hypertension Category: Medical Plan: Continue valsartan and metoprolol (3) Hyperlipidemia: Code(s): E78.5 - Hyperlipidemia, unspecified Category: Medical Plan: Continue statin (4) Diabetes: Code(s): E11.9 - Type 2 diabetes mellitus without complications Category: Medical Plan: Continue Farxiga and Ozempic, ADA diet patient will return in 3 weeks with a fasting labs before Orders: Orders PFT pulmonary function test Today J45.909 - Unspecified asthma, uncomplicated Complete Blood Count Auto Diff 07/02/25 E11.9 - Type 2 diabetes mellitus without complications, E78.5 - Hyperlipidemia, unspecified, I10 - Essential (primary) hypertension Hemoglobin A1c 07/02/25 E11.9 - Type 2 diabetes mellitus without complications, E78.5 - Hyperlipidemia, unspecified, I10 - Essential (primary) hypertension Lipid Panel 07/02/25 E11.9 - Type 2 diabetes mellitus without complications, E78.5 - Hyperlipidemia, unspecified, I10 - Essential (primary) hypertension Microalbumin, Random (w Creat) 07/02/25 E11.9 - Type 2 diabetes mellitus without complications, E78.5 - Hyperlipidemia, unspecified, I10 - Essential (primary) hypertension Comprehensive [place]. Panel Fast 07/02/25 E11.9 - Type 2 diabetes mellitus without complications, E78.5 - Hyperlipidemia, unspecified, I10 - Essential (primary) hypertension Medications: New fluticasone furoate-vilanterol 100-25 mcg/dose (Breo Ellipta) 1 inh inhalation DAILY 60 ea 3RF Refilled albuterol sulfate 90 mcg/actuation 2 puffs inhalation Q6H PRN 6.7 grams 1RF shortness of breath or wheezing potassium citrate ER 20 mEq (2 x 10 mEq (1,080 mg)) PO BID 120 tabs 2RF
[2025-06-14 12:59] VITALS: BP 118/80; PULSE 83; RESP 18; TEMP 37; O2SAT 95; BMI 32.7
== END 2025-06-14 13:47 | disposition home or self-care (01) ==
LOC: HO.HMCC 12:47
PROVIDERS: PCP Internal Medicine; Visit Provider Internal Medicine
DX: J45.909 Unspecified asthma, uncomplicated (principal); I10 Essential (primary) hypertension; E78.5 Hyperlipidemia, unspecified; E11.9 Type 2 diabetes mellitus without complications

== ENCOUNTER 2025-07-02 07:59 | Outpatient (REF) | payer OTHER, SELFPAY ==
[2025-07-02 11:10] LABS: MANUAL DIFF FLAG NO
[2025-07-02 11:13] LABS: Hematocrit 42.0 % (42.0-52.0); Hemoglobin 14.1 g/dl (14.0-18.0); Imm Gran Abs Auto 0.04 X10*3/uL (0.00-0.03); Imm Gran Pct Auto 0.7 % (0.0-0.4); Lymphocytes Absolute Auto 1.9 X10*3/uL (1.2-4.9); Mean Corpuscular HGB Conc 33.6 g/dl (31.0-36.0); Mean Corpuscular Hemoglobin 29.5 pg (27.0-33.0); Mean Corpuscular Volume 87.9 fL (80.0-98.0); NRBC Abs Auto 0.000 X10*3/uL (0.0-0.012); NRBC Pct Auto 0.0 /100WBC (0.0-0.2); Platelet Count 263 X10*3/uL (160-400); Red Blood Count 4.78 X10*6/uL (4.60-5.80); White Blood Count 5.8 X10*3/uL (4.8-10.8)
[2025-07-02 11:28] LABS: Alanine Aminotransferase 29 U/L (0-40); Albumin Level 4.4 g/dL (3.5-5.0); Alkaline Phosphatase 42 U/L (39-117); Anion Gap 11 (12-20); Aspartate Amino Transferase 29 U/L (5-37); Blood Urea Nitrogen 17 mg/dL (9-16); Calcium 8.7 mg/dL (8.4-10.2); Carbon Dioxide 26 mmol/L (22-29); Chloride 105 mmol/L (96-108); Cholesterol 139 mg/dL (<200); Estimated Glomerular Filt Rate > 60; HDL Cholesterol 32 mg/dL (>40); Potassium 4.2 mmol/L (3.3-5.1); Sodium 138 mmol/L (135-145); Total Protein 7.4 g/dL (6.5-8.0); Triglycerides 305 mg/dL (<150)
[2025-07-02 11:51] LABS: Microalbum/Creatinine Ratio Ur 102.3 ug/mg cr (<30)
== END 2025-07-02 08:00 | disposition home or self-care (01) ==
LOC: HO.HMGCLDS 07:59
PROVIDERS: PCP Internal Medicine; Visit Provider Internal Medicine
DX: E11.9 Type 2 diabetes mellitus without complications (principal); E78.5 Hyperlipidemia, unspecified; I10 Essential (primary) hypertension
CPT/HCPCS: 36415; 80053; 80061; 82043; 82570; 83036; 85025

== ENCOUNTER 2025-07-05 12:55 | Outpatient (AMB) | payer OTHER, SELFPAY ==
[2025-07-05 13:23] VITALS: BP 126/80; PULSE 88; RESP 18; TEMP 36.7; O2SAT 95; BMI 33.1
--- NOTE | 2025-07-05 13:23 | A.OFFPC_ITS ---
Vital Signs 07/05/25 13:23 Height 5 ft 8 in Weight 218 lb BMI 33.1 BP 126/80 Blood Pressure Location Rt brachial Position Sitting Respiration 18 Pulse 88 Pulse Source Pulse Oximeter Temp 98.1 F Temp Source Oral Pulse Oximetry (%) 95 Oxygen Delivery Method Room Air Intake Visit Reasons: Annual PE Intake Note: Pt is here today for PE. Allergies penicillin V Allergy (Unknown, Verified 07/05/25 13:27) Unknown Medication List - Last Reconciled 07/05/25 by Delma Burks MD albuterol sulfate 90 mcg/actuation 2 puffs inhalation Q6H PRN aspirin 81 mg PO DAILY blood sugar diagnostic (FreeStyle Lite Strips) test once a day blood-glucose meter (FreeStyle Lite Meter kit) As directed dapagliflozin propanediol (Farxiga) 10 mg PO DAILY fluticasone furoate-vilanterol 100-25 mcg/dose (Breo Ellipta) 1 inh inhalation DAILY metoprolol succinate ER 50 mg PO DAILY omeprazole 20 mg PO DAILY paroxetine HCl 20 mg PO DAILY potassium citrate ER 20 mEq (2 x 10 mEq (1,080 mg)) PO BID pravastatin 20 mg PO DAILY semaglutide (Ozempic) 2 mg (0.75 mL) subcut QWEEK umeclidinium-vilanterol 62.5-25 mcg/actuation (Anoro Ellipta) 1 inh inhalation DAILY valsartan 320 mg PO DAILY Tobacco use date assessed: 07/05/25 Dental Screening Dental Screen Date: 10/05/24 HPI Annual PE HPI Details Patient presents for physical. Asthma is better controlled on Breo Ellipta [facility] Medical History (Updated 07/05/25 @ 14:04 by Delma Burks MD) Nephrolithiasis Annual physical exam Anemia Diabetic neuropathy Microalbuminuria Anxiety Diabetes Hyperlipidemia Hypertension Surgical History H/O colonoscopy Family History Father CVD (cardiovascular disease) Mother Stroke Social History Housing: House Alcohol intake: current Alcohol intake frequency: a few times a month Patient Tobacco Use Status: Never used Tobacco e-Cigarette/Vaping Use: Never Used service: No Current occupational status: employed Cognitive needs: No Hearing needs: No Vision needs: No Questionnaire Thrive Questionnaire Date Thrive assessed: 10/05/24 LARISSA-7 AMB Questionnaire LARISSA-7 Date LARISSA - 7 assessed: 10/05/24 Source: Developed by Drs. Kimo Sagastume, Alexandra Garay, Meng Ventura and colleagues, with an educational samir from [employer]. Review of Systems Const All systems reviewed & are unremarkable except as noted in HPI and below Eyes Reports no additional complaints ENT Reports no additional complaints Card Reports no additional complaints Resp Reports no additional complaints GI Reports no additional complaints Physical exam (Primary Care) Vital Signs: Last Vital Signs Temp 98.1 F 07/05/25 13:23 Pulse 88 07/05/25 13:23 Resp 18 07/05/25 13:23 BP 126/80 07/05/25 13:23 Pulse Ox 95 07/05/25 13:23 Oxygen Delivery Method Room Air 07/05/25 13:23 BMI result Body Mass Index 33.1 Tobacco/Smoking Status: Tobacco use Status Tobacco use date assessed 07/05/25 07/05/25 13:30 Patient Tobacco Use Status Never used Tobacco 07/05/25 13:25 e-Cigarette/Vaping Use Never Used 07/05/25 13:25 Thrive Assessment: Date of Thrive Assessment Date Thrive assessed 10/05/24 07/05/25 13:25 Const General: no acute distress HENMT Head: Yes normal to inspection Eyes General: appearance normal, both eyes and all related structures Neck Neck: Yes no lymphadenopathy and Yes supple Resp Effort & Inspection: normal respiratory effort Auscultation: diminished lung sounds Cardio Rhythm: regular rhythm Heart sounds: S1 normal heart sound present and S2 normal heart sound present GI Inspection: Yes normal to inspection Palpation (GI): Soft to palpation Percussion: Yes normal to percussion Auscultation: normal bowel sounds Extrem General: Yes no clubbing, cyanosis or edema Coding Level of Care Code Est Pt Prev Care 40-64y(07510) Diagnoses Hypertension I10 Hyperlipidemia E78.5 Diabetes E11.9 Asthma J45.909 Annual physical exam Z00.00 Assessment & Plan Assessment & Plan (1) Hypertension: Code(s): I10 - Essential (primary) hypertension Category: Medical Plan: Continue current medications (2) Hyperlipidemia: Code(s): E78.5 - Hyperlipidemia, unspecified Category: Medical Plan: Continue statin (3) Diabetes: Code(s): E11.9 - Type 2 diabetes mellitus without complications Category: Medical Plan: A1c is 5.7, continue ADA diet regular exercise Farxiga and Ozempic. Patient was advised to monitor his blood glucose. Follow-up in 3 months with a fasting labs before (4) Asthma: Code(s): J45.909 - Unspecified asthma, uncomplicated Category: Medical Plan: Continue Breo and PFTs is scheduled for September (5) Annual physical exam: Comment: Negative Cologuard July 2023 Code(s): Z00.00 - Encounter for general adult medical examination without abnormal findings Category: Medical Plan: Well-balanced diet regular physical activity discussed with the patient return in 3 months with a fasting labs before Orders: Orders Complete Blood Count Auto Diff 3 Months E11.9 - Type 2 diabetes mellitus without complications, E78.5 - Hyperlipidemia, unspecified, I10 - Essential (primary) hypertension Hemoglobin A1c 3 Months E11.9 - Type 2 diabetes mellitus without complications, E78.5 - Hyperlipidemia, unspecified, I10 - Essential (primary) hypertension Comprehensive [place]. Panel Fast 3 Months E11.9 - Type 2 diabetes mellitus without complications, E78.5 - Hyperlipidemia, unspecified, I10 - Essential (primary) hypertension Lipid Panel 3 Months E11.9 - Type 2 diabetes mellitus without complications, E78.5 - Hyperlipidemia, unspecified, I10 - Essential (primary) hypertension Microalbumin, Random (w Creat) 3 Months E11.9 - Type 2 diabetes mellitus without complications, E78.5 - Hyperlipidemia, unspecified, I10 - Essential (primary) hypertension Medications: Refilled blood sugar diagnostic (FreeStyle Lite Strips) test once a day 100 ea 3RF E11.9 - Type 2 diabetes mellitus without complications blood-glucose meter (FreeStyle Lite Meter kit) As directed 1 ea 0RF E11.9 - Type 2 diabetes mellitus without complications Discontinued umeclidinium-vilanterol 62.5-25 mcg/actuation (Anoro Ellipta) Discontinued Reason: Doctor's Order 1 inh inhalation DAILY 60 ea 4RF
== END 2025-07-05 14:04 | disposition home or self-care (01) ==
LOC: HO.HMCC 12:56
PROVIDERS: PCP Internal Medicine; Visit Provider Internal Medicine
DX: Z00.00 Encounter for general adult medical examination without abnormal findings (principal); E11.69 Type 2 diabetes mellitus with other specified complication; I10 Essential (primary) hypertension; E78.5 Hyperlipidemia, unspecified; J45.909 Unspecified asthma, uncomplicated